=== PATIENT | female | born 1980 | race Caucasian/White ===

== ENCOUNTER → 2017-12-29 13:53 | Outpatient (CLI) | payer OTHER, SELFPAY ==
--- NOTE | 2017-12-29 14:04 | US_ITS ---
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 Combined endometrial thickness is upper normal at 1 cm. There is focal increased echogenicity in the superior aspect of the endometrium somewhat ill-defined with some mild posterior acoustical shadowing. This may be related to patient's Essure device as seen on previous CT scans. The tubal occlusion devices are not well demonstrated sonographically.. The right ovary measures 3 x 2.4 cm. The left ovary measures 3.5 x 2 cm. There are small bilateral ovarian follicles. No dominant adnexal mass. No cul-de-sac fluid. Bilateral ovarian blood flow is present. IMPRESSION: No acute finding. Increased echogenicity within the endometrium probably related to tubal occlusion device Endometrial thickness within normal limits
== END ==
PROVIDERS: Family Provider Pediatrics; PCP Nurse Practitioner Obstetrics & Gynecology; Visit Provider Nurse Practitioner Obstetrics & Gynecology
DX: N92.0 Excessive and frequent menstruation with regular cycle (principal)
CPT/HCPCS: 76830

== ENCOUNTER → 2018-01-17 15:07 | Outpatient (CLI) | payer OTHER, SELFPAY ==
[2018-01-17 15:28] LABS: Basophils # 0.1 K/mm3 (0-0.2); Basophils % 0.7 % (0.1-2.0); Eosinophils # 0.1 K/mm3 (0.0-0.4); Eosinophils % 1.3 % (0.1-12.0); Hematocrit 41.4 % (37.0-47.0); Hemoglobin 13.3 g/dL (12.2-16.2); Lymphocytes # 1.7 K/mm3 (0.7-4.5); Lymphocytes % 14.5 K/mm3 (10-50); Mean Corpuscular HGB Conc 32.2 g/dL (31.8-35.4); Mean Corpuscular Hemoglobin 27.6 pg (27.0-31.2); Mean Corpuscular Volume 85.5 fl (81-99); Mean Platelet Volume 8.3 fl (7.4-10.4); Monocytes # 0.5 K/mm3 (0.1-1.0); Monocytes % 4.4 % (1.7-9.3); Neutrophils # 9.1 K/mm3 (1.8-7.8); Neutrophils % 79.2 % (37.0-80.0); Platelet Count 347 K/mm3 (142-424); Red Blood Count 4.84 M/mm3 (4.20-5.40); Red Cell Distribution Width 13.2 % (11.5-17.5); White Blood Count 11.4 K/mm3 (4.8-10.8)
[2018-01-17 16:11] LABS: HCG Qualitative, Serum Negative (Negative)
[2018-01-17 16:33] LABS: Alanine Aminotransferase 13 U/L (12-78); Albumin Level 3.5 gm/dL (3.4-5.0); Albumin/Globulin Ratio 0.9 (1.1-1.8); Alkaline Phosphatase 118 U/L (46-116); Anion Gap 12.2 mEq/L (5-15); Aspartate Amino Transferase 10 U/L (15-37); Bilirubin,Total 0.2 mg/dL (0.2-1.0); Blood Urea Nitrogen 6 mg/dL (7-18); Calcium 8.8 mg/dL (8.5-10.1); Carbon Dioxide 30 mmol/L (21.0-32.0); Chloride 106 mmol/L (98-107); Creatinine,Serum 0.74 mg/dL (0.55-1.02); Estimated Glomerular Filt Rate 88 ml/min (>60); Free Thyroxine Index 2.9 ug/dL (5.93-13.13); GFR (African American) 106 ML/MIN (>60); Globulin 3.8 gm/dl (1.3-3.2); Glucose 103 mg/dL (74-106); Potassium 4.2 mmoL/L (3.5-5.1); Sodium 144 mmol/L (136-145); T4 (Thyroxine) 8.9 ug/dl (4.7-13.3); Total Protein,Serum 7.3 gm/dL (6.4-8.2); Triiodothryronine (T3) Uptake 33 % (31-39)
[2018-01-20 07:03] LABS: Neisseria gonorrhoeae, NAA Negative (Negative)
== END ==
PROVIDERS: Family Provider Pediatrics; PCP Nurse Practitioner Obstetrics & Gynecology; Visit Provider Nurse Practitioner Obstetrics & Gynecology
DX: N93.9 Abnormal uterine and vaginal bleeding, unspecified (principal); N89.8 Other specified noninflammatory disorders of vagina
CPT/HCPCS: 36415; 80053; 84436; 84443; 84479; 84703; 85014; 85018; 85025; 87491; 87591

== ENCOUNTER → 2018-01-31 10:26 | Outpatient (CLI) | payer OTHER, SELFPAY ==
[2018-01-31 10:50] LABS: Basophils # 0.1 K/mm3 (0-0.2); Basophils % 0.6 % (0.1-2.0); Eosinophils # 0.1 K/mm3 (0.0-0.4); Eosinophils % 1.2 % (0.1-12.0); Hematocrit 42.4 % (37.0-47.0); Hemoglobin 13.5 g/dL (12.2-16.2); Lymphocytes # 1.4 K/mm3 (0.7-4.5); Lymphocytes % 16.4 K/mm3 (10-50); Mean Corpuscular HGB Conc 31.7 g/dL (31.8-35.4); Mean Corpuscular Hemoglobin 27.7 pg (27.0-31.2); Mean Corpuscular Volume 87.3 fl (81-99); Mean Platelet Volume 8.1 fl (7.4-10.4); Monocytes # 0.4 K/mm3 (0.1-1.0); Monocytes % 4.7 % (1.7-9.3); Neutrophils # 6.6 K/mm3 (1.8-7.8); Platelet Count 335 K/mm3 (142-424); Red Blood Count 4.86 M/mm3 (4.20-5.40); White Blood Count 8.5 K/mm3 (4.8-10.8)
[2018-01-31 11:57] LABS: HCG Qualitative, Serum Negative (Negative)
[2018-01-31 13:17] LABS: Anion Gap 12.4 mEq/L (5-15); Blood Urea Nitrogen 8 mg/dL (7-18); Calcium 8.8 mg/dL (8.5-10.1); Carbon Dioxide 30 mmol/L (21.0-32.0); Chloride 106 mmol/L (98-107); Creatinine,Serum 0.64 mg/dL (0.55-1.02); Estimated Glomerular Filt Rate 104 ml/min (>60); GFR (African American) 126 ML/MIN (>60); Glucose 101 mg/dL (74-106); Potassium 4.4 mmoL/L (3.5-5.1); Sodium 144 mmol/L (136-145)
== END ==
PROVIDERS: PCP Pediatrics; Visit Provider Nurse Practitioner Obstetrics & Gynecology
DX: Z01.818 Encounter for other preprocedural examination (principal); N92.0 Excessive and frequent menstruation with regular cycle
CPT/HCPCS: 36415; 80048; 84703; 85025

== ENCOUNTER → 2018-09-22 07:00 | Outpatient (CLI) | payer OTHER, SELFPAY ==
[2018-09-22 07:03] LABS: Microscopic, Urine URINE MICROSCOPIC (MICROSCOPIC)
[2018-09-22 07:21] LABS: Appearance,Urine SL CLOUDY (Clear); Bilirubin,Urine Negative (Negative); Blood, Urine Negative (Negative); Color,Urine YELLOW (Yellow); Glucose,Urine (UA) Negative (Negative); Ketones,Urine Negative (Negative); Leukocyte Esterase,Urine Negative (Negative); Nitrate,Urine Negative (Negative); PH,Urine 6.5 (5.0-8.5); Protein,Urine Negative (Negative); Specific Gravity, Urine 1.015 (1.005-1.030); Urobilinogen,Urine 0.2 EU/dl (0.2)
[2018-09-22 07:41] LABS: Basophils # 0.1 K/mm3 (0-0.2); Basophils % 0.8 % (0.1-2.0); Eosinophils # 0.2 K/mm3 (0.0-0.4); Eosinophils % 1.6 % (0.1-12.0); Hematocrit 42.9 % (37.0-47.0); Hemoglobin 13.8 g/dL (12.2-16.2); Lymphocytes # 1.8 K/mm3 (0.7-4.5); Lymphocytes % 18.4 % (10-50); Mean Corpuscular HGB Conc 32.1 g/dL (31.8-35.4); Mean Corpuscular Hemoglobin 27.9 pg (27.0-31.2); Mean Corpuscular Volume 86.7 fl (81-99); Mean Platelet Volume 7.9 fl (7.4-10.4); Monocytes # 0.4 K/mm3 (0.1-1.0); Monocytes % 4.3 % (1.7-9.3); Neutrophils # 7.2 K/mm3 (1.8-7.8); Neutrophils % 74.9 % (37.0-80.0); Platelet Count 339 K/mm3 (142-424); Red Blood Count 4.95 M/mm3 (4.20-5.40); Red Cell Distribution Width 12.9 % (11.5-17.5); White Blood Count 9.6 K/mm3 (4.8-10.8)
[2018-09-22 08:04] LABS: Bacteria,Urine Trace /lpf; Hyaline Casts,Urine Occasional #/lpf (0)
[2018-09-22 08:51] LABS: Alanine Aminotransferase 15 U/L (12-78); Albumin Level 3.7 gm/dL (3.4-5.0); Albumin/Globulin Ratio 0.9 (1.1-1.8); Alkaline Phosphatase 109 U/L (46-116); Anion Gap 12.3 mEq/L (5-15); Aspartate Amino Transferase 10 U/L (15-37); Bilirubin,Total 0.6 mg/dL (0.2-1.0); Blood Urea Nitrogen 11 mg/dL (7-18); Calcium 9.1 mg/dL (8.5-10.1); Carbon Dioxide 29 mmol/L (21.0-32.0); Chloride 106 mmol/L (98-107); Chol/HDL Ratio 3.5 (1-3.5); Cholesterol 188 mg/dL (140-200); Creatinine,Serum 0.66 mg/dL (0.55-1.02); Estimated Glomerular Filt Rate 100 ml/min (>60); GFR (African American) 121 ML/MIN (>60); Glucose 98 mg/dL (74-106); HDL Cholesterol 53 mg/dL (29-89); LDL Cholesterol 121 mg/dL (0-130); Potassium 4.3 mmoL/L (3.5-5.1); Sodium 143 mmol/L (136-145); Thyroid Stimulating Hormone 2.49 uIU/ml (0.358-3.740); Total Protein,Serum 7.7 gm/dL (6.4-8.2); Triglycerides 68 mg/dL (30-200); VLDL Cholesterol 14 mg/dL (0-40)
== END ==
PROVIDERS: Visit Provider Pediatrics
DX: I10 Essential (primary) hypertension (principal); R53.83 Other fatigue; R35.1 Nocturia
CPT/HCPCS: 36415; 80053; 80061; 81001; 84443; 85025

== ENCOUNTER → 2018-10-24 10:57 | Outpatient (CLI) | payer OTHER, SELFPAY ==
[2018-10-26 07:46] LABS: Hepatitis B Surface Antigen Negative (Negative); Hepatitis C Antibody 0.1 s/co ratio (0.0-0.9); Rapid Plasma Reagin Ab Titer Non Reactive (NonRea<1:1)
[2018-10-26 07:47] LABS: HIV Screen 4th Generation wRfx Non Reactive (Non Reactive); HSV 2 IgG Supplemental Testing Positive (Negative); HSV 2 IgG, Type Spec 1.18 index (0.00-0.90)
== END ==
PROVIDERS: Visit Provider Nurse Practitioner Obstetrics & Gynecology
DX: Z72.51 High risk heterosexual behavior (principal)
CPT/HCPCS: 36415; 86592; 86695; 86703; 86790; 87340; 87380; G0432

== ENCOUNTER → 2019-12-13 07:31 | Outpatient (CLI) | payer OTHER, SELFPAY ==
[2019-12-13 08:27] LABS: Alanine Aminotransferase 8 U/L (12-78); Albumin Level 3.9 g/dl (3.5-5.0); Albumin/Globulin Ratio 1.3 (1.1-1.8); Alkaline Phosphatase 114 U/L (38-126); Anion Gap 13.1 mEq/L (5-15); Aspartate Amino Transferase 21 U/L (14-36); Bilirubin,Total 0.3 mg/dl (0.2-1.3); Blood Urea Nitrogen 17 mg/dl (7-17); Calcium 9.5 mg/dl (8.4-10.2); Carbon Dioxide 30 mmol/L (22.0-30.0); Chloride 101 mmol/L (98-107); Chol/HDL Ratio 3.4 (1-3.5); Cholesterol 175 mg/dl (140-200); Estimated Glomerular Filt Rate 111 ml/min (>60); GFR (African American) 134 ML/MIN (>60); Globulin 3.1 g/dL (1.3-3.2); Glucose 103 mg/dl (74-100); HDL Cholesterol 52 mg/dl (40-60); Potassium 5.1 mmoL/L (3.5-5.1); Sodium 139 mmol/L (136-145); Triglycerides 77 mg/dl (30-150); VLDL Cholesterol 15 mg/dL (0-40)
[2019-12-13 08:32] LABS: Basophils # 0.1 K/mm3 (0-0.2); Basophils % 0.7 % (0.1-2.0); Eosinophils # 0.3 K/mm3 (0.0-0.4); Eosinophils % 2.3 % (0.1-12.0); Hematocrit 41.1 % (37.0-47.0); Hemoglobin 13.7 g/dL (12.2-16.2); Lymphocytes # 2.3 K/mm3 (0.7-4.5); Lymphocytes % 18.1 % (10-50); Mean Corpuscular HGB Conc 33.3 g/dL (31.8-35.4); Mean Corpuscular Hemoglobin 28.8 pg (27.0-31.2); Mean Corpuscular Volume 86.4 fl (81-99); Mean Platelet Volume 8.1 fl (7.4-10.4); Monocytes # 0.7 K/mm3 (0.1-1.0); Monocytes % 5.7 % (1.7-9.3); Neutrophils # 9.1 K/mm3 (1.8-7.8); Neutrophils % 73.2 % (37.0-80.0); Platelet Count 351 K/mm3 (142-424); Red Blood Count 4.76 M/mm3 (4.20-5.40); Red Cell Distribution Width 13.1 % (11.5-17.5); White Blood Count 12.5 K/mm3 (4.8-10.8)
[2019-12-13 08:38] LABS: Direct LDL Cholesterol 103.78 mg/dL (100-129)
[2019-12-14 11:17] LABS: LH 7.4 mIU/mL (.)
== END ==
PROVIDERS: Visit Provider Nurse Practitioner Obstetrics & Gynecology
DX: Z01.419 Encounter for gynecological examination (general) (routine) without abnormal findings (principal)
CPT/HCPCS: 36415; 80053; 80061; 83001; 83002; 85025

== ENCOUNTER → 2020-01-09 09:47 | Outpatient (CLI) | payer OTHER, SELFPAY ==
--- NOTE | 2020-01-09 09:48 | MM_ITS ---
PROCEDURE: MM DIG SCREENING MAMM BI W/CAD Referring Doctor: Jhonatan Juarez Patient Age:39Y CLINICAL INDICATION: Baseline screening. No hormones no new complaints. Screening xmg Noncontributory family history COMPARISON: No exams were available for comparisonBaseline mammogram TECHNIQUE: Standard CC and MLO images were obtained. R2 CAD reviewed. Bilateral digital breast tomosynthesis included. FINDINGS: Baseline mammogram moderate density breast bilaterally. Fibroglandular elements most evident extending towards upper-outer quadrant. No suspicious calcifications. No suspicious mass. Small most likely benign nodular densities left breast Left breast: 7 mm round smooth margin nodular density upper-outer quadrant benign appearance but warrants ultrasound to further evaluate. Suspect small cyst or possible intramammary node. Just superior and lateral to this is a tiny 3 mm most likely benign nodular density of with smooth margin with similar considerations are Right breast. No new areas of concern. Continue with annual schedule right breast IMPRESSION: Baseline mammogram Left breast: Well-marginated benign-appearing 7 mm and 3 mm nodular densities upper outer quadrant left breast. Ultrasound suggested to further evaluate Right breast unremarkable. Follow-up 1 year on right BI-RAD Category: 0 Need Additional Imaging Evaluation the FOLLOW-UP: IMM Immediate Follow-up Recommended Ultrasound left breast (A letter has been sent to the patient regarding results of the study.) Dictated by: Ji Castillo MD 01/11/2020 11:52 Ji Castillo MD in [facility] 01/11/2020 11:52
== END ==
PROVIDERS: PCP Pediatrics; Visit Provider Nurse Practitioner Obstetrics & Gynecology
DX: Z12.31 Encounter for screening mammogram for malignant neoplasm of breast (principal)
CPT/HCPCS: 77063; 77067

== ENCOUNTER → 2020-01-24 13:03 | Outpatient (CLI) | payer OTHER, SELFPAY ==
--- NOTE | 2020-01-24 13:03 | US_ITS ---
PROCEDURE: US BREAST LT COMPLETE CLINICAL INDICATION: abnormal xmg COMPARISON: MG MM DIG SCREENING MAMM BI W/CAD from 01/09/2020 FINDINGS: At 2 o'clock there is a 6 by 5 mm complex nodule hypoechoic peripherally with a hyperechoic center and may be due to a lymph node. In addition there is a 4 mm mostly hyperechoic nodule at 2 o'clock with a peripheral area of slight decreased echogenicity. These are consistent with small lymph nodes. There is a 1.9 cm axillary node nonspecific. IMPRESSION: Probably benign findings. Mammographic abnormalities are likely related to intramammary lymph nodes. Recommend six-month sonographic and mammographic follow-up to confirm stability and to confirm baseline Dictated by: Salvador Machado MD 02/04/2020 09:44 Salvador Machado MD in [facility] 02/04/2020 09:44
== END ==
PROVIDERS: PCP Pediatrics; Referring Provider Nurse Practitioner Obstetrics & Gynecology; Visit Provider Nurse Practitioner Obstetrics & Gynecology
DX: R92.8 Other abnormal and inconclusive findings on diagnostic imaging of breast (principal)
CPT/HCPCS: 76641

== ENCOUNTER → 2020-07-30 13:31 | Outpatient (CLI) | payer OTHER, SELFPAY ==
--- NOTE | 2020-07-30 13:32 | US_ITS ---
PROCEDURE: MM DIG MAMM DX UNILAT LT CAD Digital Breast Tomosynthesis Included CLINICAL INDICATION: Mammographic abnormalities-Intramammary Lymph node humerus COMPARISON: MG MM DIG SCREENING MAMM BI W/CAD from 01/09/2020 US US BREAST LT COMPLETE from 01/24/2020 US US BREAST LT COMPLETE from 07/30/2020 TECHNIQUE: Standard CC and MLO images and 3D Tomosynthesis was obtained. R2 CAD reviewed. Left breast ultrasound also performed FINDINGS: Average fibroglandular tissue. No change in the 6 mm well-circumscribed nodule within the outer aspect of the left breast. A 3 mm nodules also noted laterally unchanged. Both have a benign appearance Left breast ultrasound: At 2 o'clock there is a 6 mm hypoechoic nodule with central area of increased echogenicity consistent with a lymph nodes similar to the previous exam. Small cyst is present at 3 o'clock measuring 5 mm IMPRESSION: Benign findings. Recommend resume bilateral screening mammogram January 2021 BI-RAD Category: 2 Benign Finding(s) FOLLOW-UP: 6M 6Month Follow-up (A letter has been sent to the patient regarding results of the study.) Dictated by: Salvador Machado MD 08/01/2020 13:34 Salvador Machado MD in [facility] 08/01/2020 13:34
== END ==
PROVIDERS: PCP Pediatrics; Visit Provider Nurse Practitioner Obstetrics & Gynecology
DX: R92.8 Other abnormal and inconclusive findings on diagnostic imaging of breast (principal)
CPT/HCPCS: 76641; 77061; 77065; G0279

== ENCOUNTER → 2021-01-16 14:14 | Outpatient (CLI) | payer OTHER, SELFPAY ==
--- NOTE | 2021-01-16 14:15 | MM_ITS ---
PROCEDURE: MM DIG MAMM BI DX W/CAD Digital Breast Tomosynthesis Included CLINICAL INDICATION: 6 month f/u from abnormal mammogram COMPARISON: MG MM DIG SCREENING MAMM BI W/CAD from 01/09/2020 US US BREAST LT COMPLETE from 07/30/2020 MG MM DIG MAMM DX UNILAT LT CAD from 07/30/2020 TECHNIQUE: Standard CC and MLO images and 3D Tomosynthesis was obtained. R2 CAD reviewed. FINDINGS: There are scattered areas of fibroglandular density Benign-appearing nodule once again noted in the upper outer left breast at 6 mm. Overall not significantly changed. An additional benign-appearing nodules present in the outer left breast at 4 mm unchanged. No suspicious appearing mass, malignant-appearing microcalcification, architectural distortion, or skin thickening. IMPRESSION: Benign findings. BI-RAD Category: 2 Benign Finding FOLLOW-UP: 1 YR 1 Year Follow-up (A letter has been sent to the patient regarding results of the study.) Dictated by: Salvador Machado MD 01/29/2021 11:48 Salvador Machado MD in [facility] 01/29/2021 11:48
== END ==
PROVIDERS: PCP Pediatrics; Visit Provider Nurse Practitioner Obstetrics & Gynecology
DX: R92.8 Other abnormal and inconclusive findings on diagnostic imaging of breast (principal)
CPT/HCPCS: 77062; 77066; G0279

== ENCOUNTER → 2021-02-06 07:30 | Outpatient (CLI) | payer OTHER, SELFPAY ==
[2021-02-06 07:50] LABS: Basophils # 0.1 K/mm3 (0-0.2); Basophils % 0.9 % (0.1-2.0); Eosinophils # 0.3 K/mm3 (0.0-0.4); Eosinophils % 2.2 % (0.1-12.0); Hematocrit 41.9 % (37.0-47.0); Hemoglobin 13.5 g/dL (12.2-16.2); Mean Corpuscular HGB Conc 32.2 g/dL (31.8-35.4); Mean Corpuscular Hemoglobin 28.2 pg (27.0-31.2); Mean Corpuscular Volume 87.4 fl (81-99); Mean Platelet Volume 8.7 fl (7.4-10.4); Monocytes # 0.6 K/mm3 (0.1-1.0); Monocytes % 4.7 % (1.7-9.3); Neutrophils # 9.1 K/mm3 (1.8-7.8); Neutrophils % 75.3 % (37.0-80.0); Platelet Count 389 K/mm3 (142-424); Red Cell Distribution Width 13.3 % (11.5-17.5); White Blood Count 12.1 K/mm3 (4.8-10.8)
[2021-02-06 09:25] LABS: Free Thyroxine Index 2.5 ug/dL (5.93-13.13); Triiodothryronine (T3) Uptake 28 % (23.5-40.5)
[2021-02-06 09:39] LABS: Thyroid Stimulating Hormone 2.51 uIU/mL (0.465-4.68)
[2021-02-06 15:35] LABS: Chloride 104 mmol/L (98-107); Potassium 3.9 mmoL/L (3.5-5.1); Sodium 140 mmol/L (136-145)
[2021-02-06 15:38] LABS: Alanine Aminotransferase 8 U/L (12-78); Albumin Level 3.8 g/dl (3.5-5.0); Albumin/Globulin Ratio 1.1 (1.1-1.8); Alkaline Phosphatase 113 U/L (38-126); Anion Gap 10.9 mEq/L (5-15); Aspartate Amino Transferase 21 U/L (14-36); Bilirubin,Total 0.5 mg/dl (0.2-1.3); Blood Urea Nitrogen 9 mg/dl (7-17); Calcium 9.1 mg/dl (8.4-10.2); Carbon Dioxide 29 mmol/L (22.0-30.0); Cholesterol 198 mg/dl (140-200); Estimated Glomerular Filt Rate 136 ml/min (>60); GFR (African American) 165 ML/MIN (>60); Globulin 3.5 g/dL (1.3-3.2); Glucose 98 mg/dl (74-100); Total Protein,Serum 7.3 g/dl (6.3-8.2); Triglycerides 119 mg/dl (30-150); VLDL Cholesterol 24 mg/dL (0-40)
[2021-02-06 15:39] LABS: Chol/HDL Ratio 4.5 (1-3.5); HDL Cholesterol 44 mg/dl (40-60)
[2021-02-06 15:50] LABS: Direct LDL Cholesterol 121.71 mg/dL (100-129)
[2021-02-07 05:09] LABS: Hep A Ab, IgM Negative (Negative); Hepatitis B Core Antibody IgM Negative (Negative); Hepatitis B Surface Antigen Negative (Negative); Hepatitis C Antibody <0.1 s/co ratio (0.0-0.9)
[2021-02-07 09:58] LABS: HIV Screen 4th Generation wRfx Non Reactive (Non Reactive)
[2021-02-07 12:03] LABS: Rapid Plasma Reagin Ab Titer Non Reactive (NonRea<1:1)
== END ==
PROVIDERS: Visit Provider Nurse Practitioner Obstetrics & Gynecology
DX: Z72.51 High risk heterosexual behavior (principal); Z01.419 Encounter for gynecological examination (general) (routine) without abnormal findings; R53.83 Other fatigue
CPT/HCPCS: 36415; 80053; 80061; 80074; 84436; 84443; 84479; 85025; 86592; 86695; 86703; 86790; G0432

== ENCOUNTER → 2021-08-20 10:43 | Outpatient (CLI) | payer OTHER, SELFPAY ==
[2021-08-21 08:33] LABS: Hep A Ab, IgM Negative (Negative); Hepatitis B Core Antibody IgM Negative (Negative); Hepatitis B Surface Antigen Negative (Negative); Hepatitis C Antibody 0.2 s/co ratio (0.0-0.9)
[2021-08-21 09:18] LABS: HIV Screen 4th Generation wRfx Non Reactive (Non Reactive)
[2021-08-21 12:29] LABS: Rapid Plasma Reagin Ab Titer Non Reactive (NonRea<1:1)
[2021-08-21 15:23] LABS: HSV 2 IgG Supplemental Testing Positive (Negative)
== END ==
PROVIDERS: Visit Provider Obstetrics & Gynecology
DX: Z20.2 Contact with and (suspected) exposure to infections with a predominantly sexual mode of transmission (principal); Z11.4 Encounter for screening for human immunodeficiency virus [HIV]
CPT/HCPCS: 36415; 80074; 86592; 86695; 86703; 86790; G0432

== ENCOUNTER → 2022-01-19 07:51 | Outpatient (CLI) | payer OTHER, SELFPAY ==
--- NOTE | 2022-01-19 07:51 | MM_ITS ---
PROCEDURE INFORMATION: Exam: MG Bilateral Screening 3D Mammography Exam date and time: 01/19/2022 7:53 AM Age: 41 years old Clinical indication: Screening examination TECHNIQUE: Imaging protocol: Bilateral Screening tomosynthesis and 2D mammography including computer-aided detection (CAD) when performed. COMPARISON: 1. MG MM DIG MAMM BI DX W/CAD 01/16/2021 2:17 PM 2. MG MM DIG MAMM DX UNILAT LT CAD 07/30/2020 1:53 PM FINDINGS: MAMMOGRAPHY: Breast composition: There are scattered areas of fibroglandular density. Mass: None. Architectural distortion: None. Calcifications: No suspicious calcifications. Asymmetric density: None. Skin thickening: None. Axillary adenopathy: None. IMPRESSION: No mammographic evidence of malignancy. Annual screening is recommended unless otherwise clinically indicated. ASSESSMENT: BI-RADS Category 1: Negative
== END ==
PROVIDERS: PCP Pediatrics; Visit Provider Nurse Practitioner Obstetrics & Gynecology
DX: Z12.31 Encounter for screening mammogram for malignant neoplasm of breast (principal)
CPT/HCPCS: 77063; 77067

== ENCOUNTER → 2023-04-11 08:10 | Outpatient (CLI) | payer OTHER, SELFPAY ==
--- NOTE | 2023-04-11 08:11 | MM_ITS ---
PROCEDURE INFORMATION: Exam: MG Bilateral Screening 3D Mammography Exam date and time: 04/11/2023 8:11 AM Age: 43 years old Clinical indication: Screening mammogram TECHNIQUE: Imaging protocol: Bilateral Screening tomosynthesis and 2D mammography including computer-aided detection (CAD) when performed. COMPARISON: 1. MG MM DIG SCREENING MAMM BI W/CAD 01/19/2022 7:53 AM 2. MG MM DIG MAMM BI DX W/CAD 01/16/2021 2:17 PM 3. MG MM DIG MAMM DX UNILAT LT CAD 07/30/2020 1:53 PM FINDINGS: MAMMOGRAPHY: Breast composition: There are scattered areas of fibroglandular density. Mass: Stable benign-appearing subcentimeter nodules are present in the left breast. No new or morphologically suspicious nodule has developed to suggest malignancy. Architectural distortion: No new or suspicious architectural distortion. Calcifications: No new or suspicious calcifications are present Asymmetric density: No new or suspicious asymmetric density is present Skin thickening: None. Axillary adenopathy: None. IMPRESSION: No mammographic evidence of malignancy. Recommend annual screening mammography unless otherwise clinically indicated. ASSESSMENT: BI-RADS category 2: Benign
== END ==
PROVIDERS: PCP Pediatrics; Visit Provider Nurse Practitioner Obstetrics & Gynecology
DX: Z12.31 Encounter for screening mammogram for malignant neoplasm of breast (principal)
CPT/HCPCS: 77063; 77067

== ENCOUNTER 2025-02-12 14:41 | Outpatient (CLI) | payer OTHER, SELFPAY ==
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
--- OUTSIDE RECORDS SUMMARY | 2025-02-04 11:45 | XMS_ITS | Encounter Summary ---
[facility] [address] [place] [address] Care Team Providers Care Roving Sizer Name Role Phone Kike Aguirre MD Primary Care Provider [phone] Reason for Visit * Reason Comments Med Refill Encounter Details Date Type Department Care Team (Late st Contact Info) Description 02/04/2025 11:45 AM EDT Office Visit [facility] [address] [place] [address] [place] [phone] Kike Aguirre MD [address] [place] [address] [place] [address] Bilateral plantar fasciitis (Primary Dx); Class 3 severe obesity due to excess calories without serious comorbidity with body mass index (BMI) of 45.0 to 49.9 in adult; Prediabetes; Gastroesophageal reflux disease without esophagitis Social History Tobacco Use Types Packs/Day Years Used Date Smoking Tobacco: Former Cigarettes 0.5 39.8 S tarted: 1985 Passive Smoke Exposure: Never Smokeless Tobacco: Never Tobacco Cessation:Counseling Given: No Alcohol Use Standard Drinks/Week Comments Never 0 [...] Sign Reading Time Taken Comments Blood Pressure 124/80 02/04/2025 11:47 AM EDT Pulse - - Temperature 37.1 C (98.7 F) 02/04/2025 11:47 AM EDT Respiratory Rate - - Oxygen Saturation - - Inhaled Oxygen Concentration - - Weight 117 kg (257 lb) 02/04/2025 11:47 AM EDT Height 157.5 cm (5' 2 ) 02/04/2025 11:47 AM EDT Body Mass Index 47.01 02/04/2025 11:47 AM EDT documented in this encounter Progress Notes * Kike Aguirre MD - 02/04/2025 1:06 PM EDTAssociated Problem(s): Gastroesophageal reflux disease without esophagitis Intermittent pattern of GERD symptoms on and off, for which he has been using Pepcid daily with benefit. No sticking sensation in throat. I recommend transition to as needed use to avoid constant antacid use. Continue reflux precautions. With increased ibuprofen use related to recent foot surgery re commend using the Pepcid regular for next couple weeks, then as needed. Advise any worsening * Kike Aguirre MD - 02/04/2025 1:06 PM EDTAssociated Problem(s): Bilateral plantar fasciitis Left greater than right sided historically with notable flare at the visit today 09/25/2024. Evaluated initially 2013, with some associated muscular aches related to the pattern. Ongoing triggers including frequent generally poor footwear without good arch support, working on hard surfaces, etc. I recommended benefits of getting new shoes with better arch support or considering inserts, other preventative measures including stretches and icing by rolling a frozen water bottle on the ground of regularity to help symptomatically. Nonetheless as of 09/25/2024 notable persisting or worsening pattern, as such he was referred to Dr. Murray, podiatry specialist where she was seen 10/18/2024 with recommendation for MRI and ultimately has been recommended for bilateral plantar fasciitis surgery, whichwas completed on 01/24/2025 and she is overall doing well with follow-up later this week. 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 Nonetheless she preferred to resume phentermine alone on 01/03/2025, again preferring to do the phentermine alone and if did not respond we couldconsider combining the phentermine with Topamax. Modest weight loss of 5 pounds with first month ofphentermine which she feels that is helping this is also been limited by her lack of mobility having had her left foot endoscopic plantar fasciotomy procedure. As such we will continue phentermine with second month today on 02/04/2025, phentermine 37.5 mg and half tablet with breakfast and 1/2 tablet with lunch, number 30 tablets. Would use typically at minimum 3 and up to 4 months of therapy if seeing benefit. She has tolerated well in the past. Reinforced importance healthy diet, exercise and weight loss. Reassess in 1 month follow-up visit, sooner as needed * Kike Aguirre MD - 02/04/2025 11:45 AM EDT Images from the original note were not included. Follow Up Office Visit Date: 02/04/2025 Patient Name: Ai Stevenson : 1980 Chief Complaint: Chief Complaint Patient presents with Med Refill History of Present Illness: Ai Stevenson is a 44 y.o. female who is here today to follow up with multiple medical problems.. History of Present Illness The patient is a 44-year-old female who presents for a follow-up visit. She reports an increase in energy levels and a decrease in appetite, which she attributes to the use of phentermine. She has lost approximately 5 pounds and is gradually increasing her physical activity. She experiences occasional heartburn, which she believes is influenced by her diet. She had a surgery 10 or 11 days ago andis scheduled for a 2-week follow-up on at 10:20. She was prescribed ibuprofen 800 mg, which has been effective in managing her pain. Otherwise reflux symptoms are overall doing fairly well but we caution with some increased Advil use related to her recent foot surgical repair, she could have flare and recommend resuming her famotidine for the next couple weeks. Subjective Review of Systems: Review of Systems I have reviewed the patients family history, social history, past medical history, past surgical history and have updated it as appropriate. Medications: Current Outpatient Medications: albuterol sulfate HFA 108 (90 Base) MCG/ACT inhaler, Inhale 2 puffs Every 4 (Four) Hours As Needed for Wheezing or Shortness of Air., Disp: 18 g, Rfl: 2 cetirizine (zyrTEC) 10 MG tablet, TAKE 1 TABLET BY MOUTH DAILY, Disp: 30 tablet, Rfl: 3 famotidine (PEPCID) 20 MG tablet, Take 1 tablet by mouth Daily As Needed for Heartburn., Disp: 90 tablet, Rfl: 1 fluticasone (FLONASE) 50 MCG/ACT nasal spray, SHAKE LIQUID AND USE 2 SPRAYS IN EACH NOSTRIL DAILY, Disp: 48 g, Rfl: 2 HYDROcodone-acetaminophen (NORCO) 5-325 MG per tablet, Take by mouth See Admin Instructions. Take 1tablet by mouth every 4-6 hours as needed for pain, Disp: , Rfl: losartan-hydrochlorothiazide (HYZAAR) 100-25 MG per tablet, Take 1 tablet by mouth Daily., Disp: 90tablet, Rfl: 1 montelukast (SINGULAIR) 10 MG tablet, Take 1 tablet by mouth Every Night., Disp: 30 tablet, Rfl: 3 phentermine (Adipex-P) 37.5 MG tablet, Take 0.5 tablets by mouth 2 (Two) Times a Day., Disp: 30 tablet, Rfl: 0 pramipexole (MIRAPEX) 0.5 MG tablet, TAKE 1 TABLET BY MOUTH EVERY NIGHT, Disp: 30 tablet, Rfl: 2 triamcinolone (KENALOG) 0.1 % cream, Apply 1 Application topically to the appropriate area as directed 2 (Two) Times a Day., Disp: 28.4 g, Rfl: 1 Allergies: No Known Allergies Objective Physical Exam: Please see above Vital Signs: Vitals: 02/04/25 1147 BP: 124/80 BP Location: Right arm Patient Position: Sitting Cuff Size: Adult Temp: 98.7 ??F (37.1 ??C) TempSrc: Temporal Weight: 117 kg (257 lb) Height: 157.5 cm (62 ) Facility age limit for growth %aliya is 20 years. Body mass index is 47.01 kg/m??. Physical Exam Constitutional: General: She is not in acute distress. Appearance: Normal appearance. She is not ill-appearing, toxic-appearing or diaphoretic. HENT: Right Ear: Tympanic membrane, ear canal and external ear normal. Left Ear: Tympanic membrane, ear canal and external ear normal. Nose: Nose normal. No rhinorrhea. Mouth/Throat: Mouth: Mucous membranes are moist. Pharynx: Oropharynx is clear. No oropharyngeal exudate or posterior oropharyngeal erythema. Cardiovascular: Rate and Rhythm: Normal rate and regular rhythm. Pulses: Normal pulses. Heart sounds: Normal heart sounds. No murmur heard. No friction rub. No gallop. Pulmonary: Effort: Pulmonary effort is normal. No respiratory distress. Breath sounds: Normal breath sounds. No stridor. No wheezing. Musculoskeletal: Right lower leg: No edema. Left lower leg: No edema. Comments: Patient is wearing a left foot boot Skin: General: Skin is warm and dry. Capillary Refill: Capillary refill takes less than 2 seconds. Neurological: General: No focal deficit present. Mental Status: She is alert and oriented to person, place, and time. Mental status is at baseline. Psychiatric: Mood and Affect: Mood normal. Behavior: Behavior normal. Thought Content: Thought content normal. Procedures Results: Labs: Hemoglobin A1C Date Value Ref Range Status 12/12/2024 5.9 (H) 4.8 - 5.6 % Final Comment: Prediabetes: 5.7 - 6.4 Diabetes: >6.4 Glycemic control for adults with diabetes: <7.0 09/25/2024 5.9 (A) 4.5 - 5.7 % Final TSH Date Value Ref Range Status 09/25/2024 2.720 0.450 - 4.500 uIU/mL Final Imaging: No valid procedures specified. Vaccine Counseling: Assessment / Plan Assessment/Plan: Diagnoses and all orders for this visit: 1. Bilateral plantar fasciitis (Primary) Assessment & Plan: Left greater than right sided historically with notable flare at the visit today 09/25/2024. Evaluated initially 2013, with some associated muscular aches related to the pattern. Ongoing triggers including frequent generally poor footwear without good arch support, working on hard surfaces, etc. I recommended benefits of getting new shoes with better arch support or considering inserts, other preventative measures including stretches and icing by rolling a frozen water bottle on the ground of regularity to help symptomatically. Nonetheless as of 09/25/2024 notable persisting or worsening pattern, as such he was referred to Dr. Murray, podiatry specialist where she was seen 10/18/2024 with recommendation for MRI and ultimately has been recommended for bilateral plantar fasciitis surgery, whichwas completed on 01/24/2025 and she is overall doing well with follow-up later this week. 2. 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 Nonetheless she preferred to resume phentermine alone on 01/03/2025, again preferring to do the phentermine alone and if did not respond we couldconsider combining the phentermine with Topamax. Modest weight loss of 5 pounds with first month ofphentermine which she feels that is helping this is also been limited by her lack of mobility having had her left foot endoscopic plantar fasciotomy procedure. As such we will continue phentermine with second month today on 02/04/2025, phentermine 37.5 mg and half tablet with breakfast and 1/2 tablet with lunch, number 30 tablets. Would use typically at minimum 3 and up to 4 months of therapy if seeing benefit. She has tolerated well in the past. Reinforced importance healthy diet, exercise and weight loss. Reassess in 1 month follow-up visit, sooner as needed Orders: - phentermine (Adipex-P) 37.5 MG tablet; Take 0.5 tablets by mouth 2 (Two) Times a Day. Dispense: 30 tablet; Refill: 0 3. Prediabetes 4. Gastroesophageal reflux disease without esophagitis Assessment & Plan: Intermittent pattern of GERD symptoms on and off, for which he has been using Pepcid daily with benefit. No sticking sensation in throat. I recommend transition to as needed use to avoid constant antacid use. Continue reflux precautions. With increased ibuprofen use related to recent foot surgery re commend using the Pepcid regular for next couple weeks, then as needed. Advise any worsening Assessment & Plan 1. Weight management/morbid obesity: She has experienced a weight loss of approximately 5 pounds since her last visit. The patient feelsmore energetic and reports that phentermine is helping with appetite suppression. Despite recent surgery and limited mobility, she has managed to lose weight, which is encouraging. A refill of phentermine will be provided. The plan is to continue this medication for at least 3 months, with the possibility of extending it to 4 months if she continues to respond well. 2. GERD: Her heartburn symptoms appear to be influenced by her dietary choices. She is advised to use Pepcidmore regularly over the next few weeks. If her condition improves, she may consider reducing her Advil intake. 3. Post-surgical pain: She reports that ibuprofen 800 mg has been effective in managing her post- surgical pain. She is advised to continue using ibuprofen as needed but to be cautious of potential heartburn. 4. Prediabetes: It is too early to recheck her prediabetes status, but her last results were within normal limits. 5. Health maintenance: She has received her influenza vaccine. She is due for a Pap smear and is reminded to schedule thisscreening. Follow-up: A follow-up visit is scheduled in 1 month. Follow Up: Return in about 1 month (around 03/06/2025) for Next scheduled follow up. Patient or patient front office representative verbalized consent for the use of Ambient Listening during the visit with Kike Aguirre MD for chart documentation. 02/04/2025 13:06 EDT Kike Aguirre MD [facility] documented in this encounter Plan of Treatment Upcoming Encounters Date Type Department Care Team (Late st Contact Info) Description 03/05/2025 9:30 AM EDT Office Visit [facility] [address] [place] [id number] Kike Aguirre MD [address] [place] [address] 03/28/2025 8:30 AM EST Office Visit [place] [id number] [place] [place] [id number] Kike Aguirre MD [address] [place] [address] documented as of this encounter Visit Diagnoses Diagnosis Bilateral plantar fasciitis- Primary Class 3 severe obesity due to excess calories without serious comorbidity with body mass index (BMI) of 45.0 to 49.9 in adult Prediabetes Other abnormal glucose Gastroesophageal reflux disease without esophagitis Esophageal reflux documented in this encounter Care Teams Roving Sizer Relationship Specialty Start Date End Date Kike Aguirre MD [address] [place] [address] PCP - General Internal Medicine 12/24/21 documented as of this encounter
--- OUTSIDE RECORDS SUMMARY | 2025-02-12 14:48 | XMS_ITS | Clinical Summary ---
Author Organization [facility] ystem Address [address] [place] [address] Care Team Providers Care Flow Specialist Name Role Phone Kike Aguirre MD Primary Care Provider [phone] Allergies No known active allergies Medications triamcinolone (KENALOG) 0.1 % creamIndication s:Allergic contact dermatitis due to other agents Apply 1 Application topically to the appropriate area as directed 2 (Two) Times a Day. 28.4 g 1 03/05/20 24 Active cetirizine (zyrTEC) 10 MG tabletIndicatio ns:Allergic contact dermatitis due to other agents TAKE 1 TABLET BY MOUTH DAILY 30 tablet 3 03/13/20 24 Active fluticasone (FLONASE) 50 MCG/ACT nasal sprayIndication s:Seasonal allergic rhinitis due to pollen SHAKE LIQUID AND USE 2 SPRAYS IN EACH NOSTRIL DAILY 48 g 2 03/19/20 24 Active montelukast (SINGULAIR) 10 MG tabletIndicatio ns:Seasonal allergic rhinitis due to pollen Take 1 tablet by mouth Every Night. 30 tablet 3 05/21/19 25 Active albuterol sulfate HFA 108 (90 Base) MCG/ACT inhalerIndicati ons:Mild intermittent intrinsic asthma without status asthmaticus without complication Inhale 2 puffs Every 4 (Four) Hours As Needed for Wheezing or Shortness of Air. 18 g 2 05/21/19 25 Active famotidine (PEPCID) 20 MG tabletIndicatio ns:Gastroesopha geal reflux disease without esophagitis Take 1 tablet by mouth Daily As Needed for Heartburn. 90 tablet 1 01/04/20 25 Active losartan-hydroc hlorothiazide (HYZAAR) 100-25 MG per tabletIndicatio ns:Essential (primary) hypertension Take 1 tablet by mouth Daily. 90 tablet 1 01/04/20 25 Active pramipexole (MIRAPEX) 0.5 MG tabletIndicatio ns:Restless legs syndrome TAKE 1 TABLET BY MOUTH EVERY NIGHT 30 tablet 2 01/18/20 25 Active HYDROcodone-swapna taminophen (NORCO) 5-325 MG per tablet Take by mouth See Admin Instructions. Take 1 tablet by mouth every 4-6 hours as needed for pain 01/26/20 25 Active phentermine (Adipex-P) 37.5 MG tabletIndicatio ns:Class 3 severe obesity due to excess calories without serious comorbidity with body mass index (BMI) of 45.0 to 49.9 in adult Take 0.5 tablets by mouth 2 (Two) Times a Day. 30 tablet 02/05/20 25 Active pramipexole (MIRAPEX) 0.5 MG tabletIndicatio ns:Restless legs syndrome TAKE 1 TABLET BY MOUTH EVERY NIGHT 30 tablet 2 09/26/19 25 2024 Discontinued phentermine (Adipex-P) 37.5 MG tabletIndicatio ns:Class 3 severe obesity due to excess calories without serious comorbidity with body mass index (BMI) of 45.0 to 49.9 in adult Take 0.5 tablets by mouth 2 (Two) Times a Day. 30 tablet 01/04/20 25 2024 Discontinued(R clare) Active Problems Problem Noted Date Diagnosed Date Gastroesophageal reflux disease without esophagi tis 01/03/2025 Assessment & Plan (02/04/2025 1:06 PM EDT): Intermittent pattern of GERD symptoms on and off, for which he has been using Pepcid daily with benefit. No sticking sensation in throat. I recommend transition to as needed use to avoid constant antacid use. Continue reflux precautions. With increased ibuprofen use related to recent foot surgery recommend using the Pepcid regular for next couple weeks, then as needed. Advise any worsening Assessment & Plan (01/03/2025 11:59 AM EDT): This pattern of GERD symptoms on and off, for which he has been using Pepcid daily with benefit. No sticking sensation in throat. I recommend transition to as needed use to avoid constant antacid use. Continue reflux precautions. Reassess how she is doing at follow-up visit. Preop cardiovascular exam 12/12/2024 Assessment & Plan (12/12/2024 10:07 AM EDT): Here for preoperative evaluation on 12/12/2024 with planned bilateral plantar fasciitis surgery by Dr. Murray. Evaluated 10/18/2024 with follow-up planned MRI, ultimately felt to be a candidate for surgery, with progressing symptoms for many years. From a cardiovascular perspective, EKG is normal today 12/12/2024 and unchanged compared to previous and her Quinones activity status evaluation is completely normal with a maximal score of 9.89 metabolic equivalents. Furthermore she does have mild intermittent asthma but very well-controlled without inhaler use for many months. As such an awareness of her asthmatic tendency is appropriate but should not prevent any difficulties for surgery. From a medical perspective she does have hypertension which is well-controlled, prediabetes which we will check with hemoglobin A1c. From a cardiovascular and pulmonary perspective she is an appropriate lower risk candidate for orthopedic surgery. I have also ordered labs including CBC, CMP, PT, PTT and hemoglobin A1c with management per results, although if reassuring she would then be deemed an appropriate surgical candidate. Breast cancer screening by mammogram 09/25/2024 Colon cancer screening 09/25/2024 Assessment & Plan (09/25/2024 12:28 PM EDT): Agreeable to [place], understanding if positive a colonoscopy would then be recommended as of today's visit 09/25/2024. Bilateral lower extremity edema 09/25/2024 Assessment & Plan (09/25/2024 12:34 PM EDT): Patient with standing pattern for many years, somewhat variable maxes months from time to year and with activity. Nonpitting pattern. Summer months are harder whether or increase standing tends to exacerbate. Will go away by the morning time. This pattern is generally normal variant with aging also with her increased weight pattern. Nonetheless we will check kidney function, liver function and she is notably had good blood pressure and EKG today 09/25/2024. Recommend compression stockings, elevation, making sure she flexes her muscles of the legs regularly when she is not active. Advise concerns. COVID 05/21/2024 Assessment & Plan (05/21/2024 2:55 PM EST): Patient testing positive for COVID in office today. In that regard we discussed symptom management, prescription for Bromfed being sent to pharmacy to help with cough and congestion. She may continue to utilize ibuprofen or Tylenol for headache or myalgias. We discussed new CDC guidelines that as long as she is 24 hours fever free without use of NSAIDs or Tylenol she can resume work schedule while continuing to wear a mask. Acute non-recurrent pansinusitis 05/21/2024 Assessment & Plan (05/21/2024 2:57 PM EST): Patient with about 6 weeks of prolonged nasal congestion, now with sinus pain and pressure. Will treat potential bacterial pathogen with azithromycin Z-Dandre. Course of prednisone should also help with sinus inflammation and promote drainage. Is also receiving decongestant through [facility] Allergic contact dermatitis due to other agents 03/05/2024 Assessment & Plan (03/05/2024 6:06 PM EDT): Pattern of rash on exposed surfaces of the arms especially forearms lesser so than the medial thighs and lower legs, felt to be most consistent with contact dermatitis likely related to some kind of the clothing material such as detergent. She does believe she is change detergent will make a change in that regard. Otherwise for treatment we will initiate prednisone 10 mg tablet 4 tablets daily x 5 days, triamcinolone 0.1% cream 2-3 times daily on nonfacial, not on genitourinary regions. Add Pepcid 20 mg twice daily and cetirizine 10 mg daily to use both together for the next week or 10 days, then as needed to benefit full antihistamine blockade. Advised if not improving. Chronic left shoulder pain 08/29/2023 Assessment & Plan (08/29/2023 10:02 AM EDT): As discussed in detail today 08/29/2023, seen in [facility] ER the day prior with notable negative x-ray of the left elbow and left shoulder, felt to be soft tissue injury most consistent with left rotator cuff arthropathy. Referred to [facility] clinic of which patient prefers to keep that location which is reasonable. For acute benefit I have added prednisone 10 mg tablet 3 tablets daily x 5 days. She has Robaxin muscle relaxants in the ER to use as needed. Recommend heating pad, light stretching. Avoidance of aggravating activities. Advise any worsening. Left lateral epicondylitis 08/29/2023 Assessment & Plan (08/29/2023 10:02 AM EDT): [place] to be secondary and comorbid with her left shoulder pain, treatment as per that conservative management. Advised if not improving. Epicondylitis elbow, medial, left 08/29/2023 Assessment & Plan (08/29/2023 10:02 AM EDT): [place] to be secondary and comorbid with her left shoulder pain, treatment as per that conservative management. Advised if not improving. Tendinitis, de Quervain's 01/27/2023 Assessment & Plan (03/30/2023 2:36 PM EST): Diagnosis 01/27/2023, felt related to some repetitive lifting, negative x-ray imaging January 2023 at [facility]. Good response to conservative management with initially naproxen, wrist brace, doing better now that she is has some flare of carpal tunnel syndrome as per that assessment plan. Advise recurrence. Assessment & Plan (02/28/2023 2:47 PM EDT): Diagnosis 01/27/2023, likely aggravated by some repetitive lifting although not a specific triggering event noted. Seen just before evaluation in January 2023 with negative x-ray at [facility]. Improved with use transient course of prednisone, followed by naproxen, use of wrist brace, and naproxen. Continue conservative management including avoidance repetitive use, wear wrist brace for any flare. Advise any worsening. Assessment & Plan (01/27/2023 9:01 AM EDT): New onset pattern of the last handful of days, likely aggravated by some repetitive lifting although not a specific triggering event noted. Gradually build up until she was seen a couple days ago in the ER with negative x-ray at [facility]. Improved with use of wrist brace, and naproxen. Positive Liberty's maneuver, very typical pattern of de Quervain's tendinitis. Initiate prednisone 10 mg tablet 3 tablets daily x5 days, followed by the previously prescribed naproxen from the ER for another 5 to 7 days. Icing, avoidance of repetitive use, wear wrist brace until this improves. Advised if not improving, we could consider physical therapy at that time. 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 Attempt to initiate Wegovy was denied by insurance, although could be reconsidered in the future if that were to change. As of 01/27/2023, 4 months of [...] could consider combining the phentermine with Topamax. 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 Attempt to initiate Wegovy was denied by insurance, although could be reconsidered in the future if that were to change. As of 01/27/2023, 4 months of [...] diet, exercise and weight loss. Advise concerns. Assessment & Plan (09/25/2024 12:28 PM EDT): Patient with some increased weight pattern as of early 2022, with power grader operator previously prescribing phentermine with some variable efficacy. Attempt to initiate Wegovy was denied by insurance, although could be reconsidered in the future if that were to change. As of 01/27/2023, 4 months of phentermine therapy that did result in weight loss, with somewhat more clinical response, having used in the past many times through gynecology. As of visit 04/02/2024, and 2 see if she might get more efficacy with an adjustment, we did a trial of phentermine at 15 mg tablet in the morning, Topamax 25 mg in the morning which is a combination which has shown some benefits further weight loss. She was lost to follow-up although does not feel like it made a significant benefit. Reinforced importance healthy diet, exercise and weight loss. 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 Attempt to initiate Wegovy was denied by insurance, although could be reconsidered in the future if that were to change. As of 01/27/2023, 4 months of phentermine therapy that did result in weight loss, with somewhat more clinical response, having used in the past many times through gynecology. To see if she may get more efficacy with an adjustment we will do a trial of phentermine at 15 mg tablet in the morning, Topamax 25 mg in the morning which is a combination which has shown some benefits further weight loss. Follow-up in 1 month's time to reassess with potential use of it for 3 to 4 months pending responsiveness. Reinforced importance healthy diet, exercise and weight loss, of which again she understands phentermine is not a long-term medication. 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 Attempt to initiate Wegovy was denied by insurance, although could be reconsidered in the future if that were to change. As of 01/27/2023, 4 months of phentermine therapy that did result in weight loss, reports that she has gained 17 pounds since her April 2023 visit with worsening diet and activity through the winter months. Too soon to reconsider phentermine therapy, although we could plan in the future if we did not see any improvement. Reinforced importance healthy diet, exercise and weight loss, of which again she understands phentermine is not a long-term medication. 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 Attempt to initiate Wegovy was denied by insurance, although could be reconsidered in the future if that were to change. As of 01/27/2023, 4 months of phentermine therapy that did result in weight loss, reports that she has gained 17 pounds since her April 2023 visit with worsening diet and activity through the winter months. Too soon to reconsider phentermine therapy, although we could plan in the future if we did not see any improvement. Reinforced importance healthy diet, exercise and weight loss, of which again she understands phentermine is not a long-term medication. 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 She does understand that phentermine even so is not designed as a long-term medicine. Attempt to initiate Wegovy was denied by insurance. As such I discussed at visit 01/27/2023 the other medication that would benefit weight loss is phentermine, and as such we initiated, now representing completion of the third month of treatment. More of a stagnant weight pattern which she still feels the medicine helps, such I will do a final and fourth months of prescription, though we will have her follow-up instead in 4 months or sooner if she needs. As such final and fourth month of with phentermine 37.5 mg at 1/2 tablet twice daily, 30-day supply, today on 04/29/2023. Jag nonconcerning. Additional importance of healthy diet and exercise to benefit weight loss. As this is final month, we will plan to follow-up in 4 months, sooner as needed. 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 She does understand that phentermine even so is not designed as a long-term medicine. Attempt to initiate Wegovy was denied by insurance. As such I discussed at visit 01/27/2023 the other medication that would benefit weight loss is phentermine, and as such we initiated, now representing completion of the second month of treatment. We could complete up to 3 or maybe 4 months treatment, as she continues to have modest weight loss, another 4 pound weight loss since her last visit, and a total of about 10 pound weight loss. She still feels it is benefit we will continue unchanged. As such I prescribed again phentermine initially 01/27/2023, refilled again for third prescription today 03/30/2023 with phentermine 37.5 mg at 1/2 tablet twice daily, 30-day supply. Reassess at 1 month follow-up visit. Jag nonconcerning. Additional importance of healthy diet and exercise to benefit weight loss. 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 She does understand that phentermine even so is not designed as a long-term medicine. Attempt to initiate Wegovy was denied by insurance. As such I discussed at visit 01/27/2023 that the only other medication that would benefit weight loss, would be the phentermine which she has seen benefit in the past but again I reinforced this is only for 3 to at most 4-month burst, and she needs to use this is a transition off the medicine to smaller portions and decreased dietary intake. She was agreeable. After 1 month she has had modest 5 pound weight loss but does feel like it is giving benefit would like to continue. As such I prescribed again phentermine initially 01/27/2023, refill today at 37.5 mg at 1/2 tablet twice daily, 30-day supply. Reassess at 1 month follow-up visit. Jag nonconcerning. Additional importance of healthy diet and exercise to benefit weight loss. Assessment & Plan (01/27/2023 9:00 AM EDT): Patient with some increased weight pattern now about 25 pounds over the last 6 months coinciding with her power grader operator no longer prescribing phentermine as she had variability in its of efficacy. She does understand that phentermine even so is not designed as a long-term medicine. Attempt to initiate Wegovy was denied by insurance. As such I discussed the only other medication that would benefit weight loss, would be the phentermine which she has seen benefit in the past but again I reinforced this is only for 3 to at most 4-month burst, and she needs to use this is a transition off the medicine to smaller portions and decreased dietary intake. She understands. Initiate phentermine 37.5 mg at 1/2 tablet twice daily, 30-day supply. Reassess at 1 month follow-up visit. Jag nonconcerning. Additional importance of healthy diet and exercise to benefit weight loss. Carpal tunnel syndrome, bilateral 05/13/2022 Assessment & Plan (09/25/2024 12:27 PM EDT): Classic presentation of bilateral carpal tunnel syndrome, with positive Phalen's and Tinel sign on exam. Waxing waning for many months as assessed 03/28/2023, with good response to conservative management eluding wrist braces at nighttime, with activities as needed. If any notable recurrence or worsening, consider referral to hand/orthopedic to consider injection and/or surgery. No new concerns as of 09/25/2024. Assessment & Plan (08/29/2023 10:01 AM EDT): Classic presentation of bilateral carpal tunnel syndrome, with positive Phalen's and Tinel sign on exam. Waxing waning for many months as assessed 03/28/2023, with good response to conservative management eluding wrist braces at nighttime, with activities as needed. Advise any notable recurrence. If any notable recurrence or worsening, consider referral to hand/orthopedic to consider injection and/or surgery. Assessment & Plan (03/30/2023 2:34 PM EST): Classic presentation of bilateral carpal tunnel syndrome, somewhat waxing waning on and off for many months. Positive Phalen's and Tinel sign on exam. Recommend use of wrist braces at nighttime and at work if able, and avoidance of aggravating activities. I did discuss if notable persistence or worsening, next evaluation would be referral to hand/orthopedic to consider injection and/or surgery. Assessment & Plan (08/16/2022 11:42 AM EDT): Classic presentation of right greater than left-sided carpal tunnel syndrome, with positive Phalen's and Tinel sign on exam, on 05/13/2022 evaluation. Improved with use of wrist braces at nighttime and avoidance of aggravating activities. I did discuss if notable persistence or worsening, next evaluation would be referral to hand/orthopedic to consider injection and/or surgery. Assessment & Plan (05/13/2022 11:44 AM EST): Classic presentation of right greater than left-sided carpal tunnel syndrome, with positive Phalen's and Tinel sign on exam. Onset initially of a numb burning tingly sensation in the first through third digits about 2 weeks ago which gradually had a sensation of shooting up towards the elbows and shoulder region. In the ER there is consideration of this being a cervical radiculopathy, but presentation is again consistent with this diagnosis. Initiate use of wrist braces at night and also consider during the daytime with work, as it appears her work where she uses her wrist and hands repetitively is the main trigger. I will initiate prednisone x5 days followed by naproxen for another couple weeks to help with anti-inflammatory benefit. I did discuss that this is not settling down with time, the neck step would be referral to hand/orthopedic to consider injection and/or surgery. Cervicalgia 05/13/2022 Assessment & Plan (05/13/2022 11:44 AM EST): Not initial pattern of discomfort in the neck, more occurring over the last days which I feel is more of a stress response that she is just having a generalized lower cervical paraspinal muscular tenderness but no signs of radiculopathy from the neck. Preservation of strength, and reflexes. The prednisone and naproxen should give benefit with addition of the recommendation for heating pad, light stretching. This should improve with treatment as well. Advise if not improving. Seasonal allergic rhinitis due to pollen 022 Assessment & Plan (09/25/2024 12:32 PM EDT): Seasonal pattern, with partial sponsor Zyrtec and Flonase, and with some breakthrough symptoms 02/28/2023 added montelukast 10 mg tablet daily, which has been beneficial.. Additional benefit of saline spray, nasal flushing. Modest meantime flares, recommend resuming her medicine. Advise any worsening. Assessment & Plan (03/05/2024 6:07 PM EDT): Seasonal pattern, with partial sponsor Zyrtec and Flonase, and with some breakthrough symptoms 02/28/2023 added montelukast 10 mg tablet daily, which has been beneficial.. Additional benefit of saline spray, nasal flushing. Advise concerns. With some modest flare at this time, recommend resumption of her allergy medicines for the next couple weeks, then as needed. Assessment & Plan (08/29/2023 10:11 AM EDT): Seasonal pattern, with partial sponsor Zyrtec and Flonase, and with some breakthrough symptoms 02/28/2023 added montelukast 10 mg tablet daily, which has been beneficial. Some refills provided 08/29/2023, use together for the next few weeks, and as needed. Additional benefit of saline spray, nasal flushing. Advise concerns. Assessment & Plan (02/28/2023 2:46 PM EDT): Seasonal pattern, with partial sponsor Zyrtec and Flonase but still some breakthrough symptoms. As such today 02/28/2023 we have added montelukast 10 mg tablet daily, use all 3 together for next couple weeks, then as needed. Additional benefit of saline spray, nasal flushing. Advise concerns. Assessment & Plan (01/06/2023 1:53 PM EDT): Patient seen benefit on medication regimen, refill provided for Zyrtec and Flonase to use for the next few weeks, and as needed. We could add Singulair in future for any breakthrough symptoms. Additional benefit of saline spray, nasal flushing. Advise concerns. Assessment & Plan (08/16/2022 11:46 AM EDT): Good response to as needed use of Zyrtec and Flonase, typically seasonal triggers in spring and fall. Additional benefit of saline spray, nasal flushing. Advised concerns. Assessment & Plan (03/23/2022 3:11 PM EST): Background allergy type symptoms last few weeks which are likely contributing to asthmatic trigger. As such I would like to initiate Zyrtec and Flonase as per prescriptions, use for the next few weeks, then as needed. Additional benefit of saline spray, nasal flushing. Advise if not improving. Viral syndrome 03/19/2022 Assessment & Plan (01/06/2023 1:53 PM EDT): COVID-19 testing negative, consistent with another viral syndrome with secondary asthmatic response. Treatment for asthma as per that assessment plan, otherwise symptomatic treatment with saline spray, nasal flushing, Tylenol/Advil as needed. Assessment & Plan (03/23/2022 3:10 PM EST): She is now 5 days into viral syndrome with strep screen negative, flu screen negative and COVID-19 testing -4 days ago when I assessed her previous. Progression of typical symptoms with more chest tightness and cough over the last few days. Please see details for asthmatic response further details, for viral syndrome, prednisone will give some benefit of sore throat, additional benefit of saline spray, cool-mist humidifier. She already has Robitussin-DM to use, recommend continued pattern. Expected course of stagnation of symptoms another day or 2 then gradual improvement. Advise if not improving. Assessment & Plan (03/19/2022 4:46 PM EST): Strep screen negative, flu screen negative, COVID-19 testing negative. Consistent with another viral illness. Symptomatic treatment with saline spray, cool-mist humidifier, Tylenol/Advil as needed. She is already using [id number] cough and cold medicine. Expected course of similar symptoms the next day or 2 then gradual improvement over the following week. Advised new onset fever or worsening. Sore throat (viral) 03/19/2022 Assessment & Plan (03/19/2022 4:45 PM EST): Strep screen negative, otherwise please refer to assessment plan for viral syndrome. Bilateral plantar fasciitis 02/09/2022 Overview (02/09/2022): initial diagnosis 06/17/2014 with aggravation and reevaluation 02/10/2016. Assessment & Plan (02/04/2025 1:06 PM EDT): Left greater than right sided historically with [...] been recommended for bilateral plantar fasciitis surgery, which was completed on 01/24/2025 and she is overall doing well with follow-up later this week. Assessment & Plan (12/12/2024 10:04 AM EDT): Left greater than right sided historically with [...] has been recommended for bilateral plantar fasciitis surgery. Preop evaluation today on 12/12/2024. Assessment & Plan (09/25/2024 12:27 PM EDT): Left greater than right sided historically with [...] ground of regularity to help symptomatically. Nonetheless with this persisting pattern patient would like to be evaluated further and I will refer to podiatry to assess in that regard. Advise concerns. Assessment & Plan (08/29/2023 10:00 AM EDT): Left greater than right sided. Evaluated initially 2013, with some associated muscular aches related to the pattern. Previously felt exacerbated by walking on hard concrete throughout the daytime, although she continues to do better ever since using better footwear with good arch support. Advise any notable recurrence Assessment & Plan (08/16/2022 11:41 AM EDT): Left greater than right sided. Evaluated initially 2013, with some associated muscular aches related to the pattern. Previously felt exacerbated by walking on hard concrete throughout the daytime, although she continues to do better ever since using better footwear with good arch support. Advise any notable recurrence Assessment & Plan (02/09/2022 9:13 AM EDT): Historically left greater than right sided. Evaluated initially 2013, with some associated muscular aches related to the pattern. This was felt to likely be exacerbated by walking on hard concrete throughout the daytime, although she's been better recently and using better footwear with better arch support. Advise recurrence. Essential (primary) hypertension 02/09/2022 Assessment & Plan (01/03/2025 11:59 AM EDT): Diagnosis 07/07/2021 initiation of losartan/HCTZ 50/12.5 daily. [...] sinus rhythm, unchanged compared to 09/25/2024, 08/29/2023, 08/16/2022 and 10/12/2021. Continue benefits of healthy diet, exercise, weight loss. Continue checking blood pressure at follow- up visits Assessment & Plan (12/12/2024 10:04 AM EDT): Diagnosis 07/07/2021 initiation of losartan/HCTZ 50/12.5 daily. [...] 50/12.5 mg dosing on 04/02/2024. Blood pressure has been in good range, and continues in good range today. She needs to monitor more regularly at home. Notable EKG obtained preoperatively on 12/12/2024 normal sinus rhythm, unchanged compared to 09/25/2024, 08/29/2023, 08/16/2022 and 10/12/2021. Continue benefits of healthy diet, exercise, weight loss. Reassess blood pressure at follow-up visit. Assessment & Plan (09/25/2024 12:29 PM EDT): Diagnosis 07/07/2021 initiation of losartan/HCTZ 50/12.5 daily. [...] 50/12.5 mg dosing on 04/02/2024. Blood pressure has been in good range. She needs to monitor more regularly at home. Notable EKG obtained 09/25/2024 and normal and unchanged compared to 08/29/2023, 08/16/2022 and 10/12/2021. Continue benefits of healthy diet, exercise, weight loss. Reassess blood pressure at follow-up visit. Assessment & Plan (04/02/2024 6:21 PM EST): Diagnosis 07/07/2021 initiation of losartan/HCTZ 50/12.5 daily. Weight sensitive blood pressure by history, previous with weight loss she was able to go off medicine but with weight gain again she is back on losartan/HCTZ as of summer 2022. She appears to have increasing blood pressure coinciding with her increasing weight. Currently on losartan/HCTZ 50/12.5 mg daily, increase to losartan/HCTZ 100/25 mg daily as of today's date 04/02/2024. She needs to monitor more regularly at home. Notable EKG obtained 08/29/2023 and normal and nonconcerning, unchanged compared to 08/16/2022 and 10/12/2021. Continue benefits of healthy diet, exercise, weight loss. Reassess blood pressure at follow-up visit. Assessment & Plan (12/29/2023 10:38 AM EDT): Diagnosis 07/07/2021 initiation of losartan/HCTZ 50/12.5 daily. Weight sensitive blood pressure by history, previous with weight loss she was able to go off medicine but with weight gain again she is back on losartan/HCTZ as of summer 2022. Continued satisfactory response to losartan/HCTZ 50/12.5 mg daily. Continues in good range in home environment in the low 120s over 70s, continue unchanged. She needs to monitor more regularly at home. Notable EKG obtained 08/29/2023 and normal and nonconcerning, unchanged compared to 08/16/2022 and 10/12/2021. Continue benefits of healthy diet, exercise, weight loss. Assessment & Plan (08/29/2023 9:39 AM EDT): Diagnosis 07/07/2021 initiation of losartan/HCTZ 50/12.5 daily. Weight sensitive, previous with weight loss she was able to go off medicine but with weight gain again she is back on losartan/HCTZ as of summer 2022. Good response to losartan/HCTZ 50/12.5 mg daily, notably elevated blood pressure in clinic today on 08/29/2023 but that is because she did not take her medicine this morning thinking she could not when she was fasting . Otherwise it is in good range and home environment in the low 120s over 70s, continue unchanged. She needs to monitor more regularly at home. Notable EKG obtained 08/29/2023 and normal and nonconcerning, unchanged compared to 08/16/2022 and 10/12/2021. Continue benefits of healthy diet, exercise, weight loss. Assessment & Plan (04/29/2023 10:25 AM EST): Diagnosis 07/07/2021 initiation of losartan/HCTZ 50/12.5 daily. Weight sensitive, previous with weight loss she was able to go off medicine but with weight gain again she is back on losartan/HCTZ as of summer 2022. Good response to losartan/HCTZ 50/12.5 mg daily, notably elevated blood pressure more around the 140/90 range since has been off the last couple weeks with difficulty getting refills. Refills provided today. She needs to monitor more regularly at home. Notable EKG obtained 08/16/2022 and normal nonconcerning, unchanged compared to 10/12/2021. Continue benefits of healthy diet, exercise, weight loss. Assessment & Plan (02/28/2023 2:42 PM EDT): Diagnosis 07/07/2021 initiation of losartan/HCTZ 50/12.5 daily. Weight sensitive, previous with weight loss she was able to go off medicine but with weight gain again she is back on losartan/HCTZ as of summer 2022. Good response to losartan/HCTZ 50/12.5 mg daily. She needs to monitor more regularly at home. Notable EKG obtained 08/16/2022 and normal nonconcerning, unchanged compared to 10/12/2021. Continue benefits of healthy diet, exercise, weight loss. Assessment & Plan (01/27/2023 8:59 AM EDT): Diagnosis 07/07/2021 initiation of losartan/HCTZ 50/12.5 daily. She had had some weight loss, she actually went off the medicine and her blood pressure had continued despite some initial modest weight gain, with continued weight gain her blood pressure is now elevated into the 130s to 140s systolic. Resume losartan/HCTZ 50/12.5 mg daily, plan to increase monitoring at home. Reassess at 1 month follow-up. Notable EKG obtained 08/16/2022 and normal nonconcerning, unchanged compared to 10/12/2021. Assessment & Plan (01/06/2023 1:52 PM EDT): Diagnosis 07/07/2021 initiation of losartan/HCTZ 50/12.5 daily. She had had some weight loss, she actually went off the medicine and her blood pressure continues in good range despite some weight gain over the last few months. As such no current need for losartan/HCTZ but I recommend continuing to monitor blood pressure regularly at home and advise elevations. Notable EKG obtained 08/16/2022 and normal nonconcerning, unchanged compared to 10/12/2021. Assessment & Plan (08/16/2022 11:43 AM EDT): Diagnosis 07/07/2021 initiation of losartan/HCTZ 50/12.5 daily. Continue good blood pressure in the 110s over 70s. With weight loss we might have to decrease the dose in the future, she understands. We will continue to follow-up. Continue monitoring blood pressure regularly. Notable EKG obtained 08/16/2022 and normal nonconcerning, unchanged compared to 10/12/2021. Assessment & Plan (03/19/2022 4:35 PM EST): Diagnosis 07/07/2021 initiation of losartan/HCTZ 50/12.5 daily. With ongoing weight loss her blood pressure has been decreasing but still is in the low 110s over 70s. I discussed that if she is to get any lower, more in the 100 systolic or 60s diastolic, I would then recommend to decrease this dose in half. We will continue to follow-up. Continue monitoring blood pressure regularly. Notable EKG obtained 10/12/2021 and nonconcerning. Assessment & Plan (02/09/2022 9:13 AM EDT): Diagnosis on 07/07/2021 after modest elevations in the 130s over 90s at home, initiation of losartan/HCTZ 50/12.5 mg daily. She is monitoring regularly, and blood pressures in the 110s over 70s most typically, with no chest pain, palpitations or short of breath. EKG obtained 10/12/2021 nonconcerning pattern. With her ongoing weight loss if her blood pressure drops further I would recommend decreasing to half a tablet daily. She will advised recommended healthy diet, exercise, benefits of ongoing weight loss. Low back pain 02/09/2022 Overview (02/09/2022): status post x-ray the lumbar spine showing no malalignment or fracture on 06/03/2011. Intrinsic asthma without sta tus asthmaticus without complication 02/09/2022 Assessment & Plan (12/12/2024 10:05 AM EDT): Known pattern of mild intermittent asthma, overall does well with infrequent as needed use of albuterol inhaler. The last such use of inhaler was in the wintertime, as such she is using very rarely and should not be a preoperative concern. Nonetheless if she would have onset of symptoms prior to surgery I would recommend delaying it. With this asthmatic tendency, while well-controlled, appropriate to be aware of this potential exacerbation. Assessment & Plan (09/25/2024 12:29 PM EDT): Known pattern of mild intermittent asthma, overall does well with infrequent as needed use of albuterol inhaler. Slight of allergies recently but she is doing well without need for rescue inhaler. A no new concerns as of 09/25/2024. Assessment & Plan (05/21/2024 2:56 PM EST): Patient has documented pattern of mild intermittent asthma. She is prescribed nightly Singulair which she is not currently been taking. As exacerbation of asthma with this viral syndrome with increased chest tightness and wheezing. Will treat with course of prednisone 40 mg daily for 7 days. I am also refilling her albuterol as she has been out. Patient also advised to restart montelukast, prescription sent to pharmacy Assessment & Plan (03/05/2024 6:06 PM EDT): Known pattern of mild intermittent asthma, overall does well with infrequent as needed use of albuterol inhaler. Slight of allergies recently but she is doing well without need for rescue inhaler. Advise any increased use. Assessment & Plan (12/29/2023 10:38 AM EDT): Known pattern of mild intermittent asthma, overall does well with infrequent as needed use of albuterol inhaler. Caution viral and allergy triggers. Advise any worsening or increased use of medication. No new concerns as of 12/29/2023. Assessment & Plan (08/29/2023 10:05 AM EDT): Known pattern of mild intermittent asthma, overall does well with infrequent as needed use of albuterol inhaler. Caution viral and allergy triggers. Advise any worsening or increased use of medication. Assessment & Plan (01/06/2023 1:54 PM EDT): Known pattern of mild intermittent asthma, but flaring recently with viral trigger. Prescription provided for albuterol to use 2 puffs every 4-6 hours next few days, then as needed. Prednisone 10 mg tablet 3 tablets daily x5 days. Advised if not improving. Assessment & Plan (08/16/2022 11:44 AM EDT): Mild intermittent pattern, typically triggers or viruses or allergies. Good response to as needed use of albuterol inhaler. Former smoker, cessation spring 2020 with benefit of asthmatic tendency. Advise any worsening. Assessment & Plan (03/23/2022 3:11 PM EST): Mild pattern overall but secondary to commendation of allergies and viral syndrome. Initiate prednisone, Ventolin HFA with spacer using 2 puffs every 4-6 hours over the next few days, then as needed. Additional benefit of saline spray, nasal flushing. Advise if not improving. Assessment & Plan (02/09/2022 9:15 AM EDT): Very modest pattern, typically triggered by viruses and allergies. No flare or need for rescue inhaler since about 2019. Advised recurrence. Personal history of tobacco use, presenting hazards to health 02/09/2022 Assessment & Plan (09/25/2024 12:30 PM EDT): Previously smoking at 1/4-1/2 pack per day, with cessation spring 2020. Understands risks of ongoing smoking including cardiovascular, cancer, pulmonary risks, benefits of ongoing cessation. Assessment & Plan (08/16/2022 11:44 AM EDT): Previously smoking at 1/4-1/2 pack per day, with cessation spring 2020. Understands risks of ongoing smoking including cardiovascular, cancer, pulmonary risks, benefits of ongoing cessation. Assessment & Plan (02/09/2022 9:16 AM EDT): Previously smoking at 1/4-1/2 pack per day, with cessation spring 2020. Understands risks of ongoing smoking including cardiovascular, cancer, pulmonary risks, benefits of ongoing cessation. Prediabetes 02/09/2022 Assessment & Plan (01/03/2025 12:01 PM EDT): Diagnosis with hemoglobin A1c 5.8% with 06/09/2021 [...] diabetes more quickly. Monitor hemoglobin A1c in 6 months. Assessment & Plan (12/12/2024 10:05 AM EDT): Diagnosis with hemoglobin A1c 5.8% with 06/09/2021 blood work. Hemoglobin A1c slightly increased to 5.9% on 09/25/2024, previous 5.7%, 5.7%, 5.6%, 5.5%, 5.4%, 5.6%. She continues to make efforts to eat healthy and be more active. Continue healthy diet, exercise, benefits of weight loss. Caution polyuria and polydipsia signs of progression to diabetes. Reinforced importance of ongoing weight loss over this would have concern of progressing to diabetes more quickly. Monitor hemoglobin A1c in 6 months. I will go ahead and recheck hemoglobin A1c with blood work preoperatively on 12/12/2024, to ensure not a surprising worsening. Management per results Assessment & Plan (09/25/2024 12:31 PM EDT): Diagnosis with hemoglobin A1c 5.8% with 06/09/2021 blood work. Hemoglobin A1c slightly increased to 5.9% today on 09/25/2024, previous 5.7%, 5.7%, 5.6%, 5.5%, 5.4%, 5.6%. She continues to make efforts to eat healthy and be more active. Continue healthy diet, exercise, benefits of weight loss. Caution polyuria and polydipsia signs of progression to diabetes. Reinforced importance of ongoing weight loss over this would have concern of progressing to diabetes more quickly. Monitor hemoglobin A1c in 6 months. Assessment & Plan (04/02/2024 6:21 PM EST): Diagnosis with hemoglobin A1c 5.8% with 06/09/2021 blood work. Hemoglobin A1c stable at 5.7%, previous 5.7%, 5.6% on 02/28/2023, previous 5.5%, 5.4%, 5.6%. She continues to make efforts to eat healthy and be more active. Continue healthy diet, exercise, benefits of weight loss. Caution polyuria and polydipsia signs of progression to diabetes. Reinforced importance of ongoing weight loss over this would have concern of progressing to diabetes more quickly. Assessment & Plan (12/29/2023 10:51 AM EDT): Diagnosis with hemoglobin A1c 5.8% with 06/09/2021 blood work. Hemoglobin A1c stable at 5.7%, previous 5.7%, 5.6% on 02/28/2023, previous 5.5%, 5.4%, 5.6%. She continues to make efforts to eat healthy and be more active. Continue healthy diet, exercise, benefits of weight loss. Caution polyuria and polydipsia signs of progression to diabetes. 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 Assessment & Plan (08/29/2023 10:09 AM EDT): Diagnosis with hemoglobin A1c 5.8% with 06/09/2021 blood work. Hemoglobin A1c modestly worsened to 5.7% compared to previous 5.6% on 02/28/2023, previous 5.5%, 5.4%, 5.6%. She continues to make efforts to eat healthy and be more active. Continue healthy diet, exercise, benefits of weight loss. With modest worsening follow-up in 4 months time to reassess, sooner as needed. Caution polyuria and polydipsia signs of progression to diabetes. Assessment & Plan (04/29/2023 10:27 AM EST): Diagnosis with hemoglobin A1c 5.8% with 06/09/2021 blood work. Hemoglobin A1c high improved when checked 02/28/2023 at 5.6%, slightly increased compared to previous at 5.5%, 5.4%, 5.6%. She continues to make efforts to eat healthy and be more active. Continue healthy diet, exercise, benefits of weight loss. Plan to recheck hemoglobin A1c when she follows up in 4 months time. Caution polyuria and polydipsia signs of progression to diabetes. Assessment & Plan (03/30/2023 2:35 PM EST): Diagnosis with hemoglobin A1c 5.8% with 06/09/2021 blood work. Hemoglobin A1c high normal and last checked 02/28/2023 at 5.6%, slightly increased compared to previous at 5.5%, 5.4%, 5.6%. She continues to make efforts to eat healthy and be more active. Continue healthy diet, exercise, benefits of weight loss. With improving control, monitor every 6 months Assessment & Plan (02/28/2023 2:45 PM EDT): Diagnosis with hemoglobin A1c 5.8% with 06/09/2021 blood work. Hemoglobin A1c slightly increased at 5.6% but still in good range, compared to previous 5.5%, 5.4%, 5.6%. Continue healthy diet, exercise, benefits of weight loss. With improving control, monitor every 6 months Assessment & Plan (08/16/2022 11:45 AM EDT): Initial diagnosis with hemoglobin A1c 5.8% with 06/09/2021 blood work. Hemoglobin A1c stable at 5.5%, previous 5.4%, 5.6%. Continue healthy diet, exercise, benefits of weight loss. With improving control, monitor every 6 months. Assessment & Plan (03/19/2022 4:45 PM EST): Initial diagnosis with hemoglobin A1c 5.8% with 06/09/2021 blood work. Hemoglobin A1c improved to 5.6% on 10/12/2021, today continues improved at 5.4% with dietary changes and weight loss. With improving control, monitor every 6 months. Recommend healthy diet, exercise and benefits of weight loss. Assessment & Plan (02/09/2022 9:13 AM EDT): Hemoglobin A1c 5.8% with 06/09/2021 blood work. Hemoglobin A1c improved to 5.6% on 10/12/2021. With ongoing weight loss, no need to recheck until her follow-up in 6 months. Recommend healthy diet, exercise and benefits of weight loss. Need for vaccination 02/09/2022 Restless legs syndrome 02/09/2022 Assessment & Plan (09/25/2024 12:31 PM EDT): Modest pattern, with previous initiation of Ropinirole at 1 mg at nighttime from March 2023. recently she feels is not as beneficial, and try different medicine. As such we will initiated on 12/29/2023 pramipexole 0.25 mg nightly which benefited, and increased to pramipexole 0.25 mg up to 0.5 mg nightly on 03/05/2024. She has seen good benefit and would like to continue unchanged. Continue good sleep hygiene. Reassess at follow-up. Assessment & Plan (03/05/2024 6:07 PM EDT): Modest pattern, with previous initiation of Ropinirole at 1 mg at nighttime from March 2023. recently she feels is not as beneficial, and try different medicine. As such we will initiated on 12/29/2023 pramipexole 0.25 mg nightly which benefited, and as such would be interested in titrating further. Increase pramipexole 0.25 mg up to 0.5 mg nightly on 03/05/2024. Continue good sleep hygiene. Reassess at follow-up. Assessment & Plan (12/29/2023 10:52 AM EDT): Modest pattern, with previous initiation of Ropinirole at 1 mg at nighttime from March 2023. recently she feels is not as beneficial, and she would be interested in trying a different medicine. As such we will initiate pramipexole 0.25 mg nightly which could be titrated up at future visits. Reassess at follow-up. Assessment & Plan (08/29/2023 10:09 AM EDT): Modest pattern but persisting despite initiation of iron previously but good response to initiation of ropinirole at 1 mg at nighttime from March 2023. This helped settle her symptoms and she is pleased at this time. Continue unchanged, advise concerns in the future. Assessment & Plan (04/29/2023 10:27 AM EST): Modest pattern but persisting despite initiation of iron at last visit. Previous attempted ropinirole 0.25 mg daily somewhat equivocally responsive, as such we initiated on 03/30/2023 ropinirole 1 mg at night, which she has had very good response. This helped settle her symptoms and she is pleased at this time. Continue unchanged, advise concerns in the future. Assessment & Plan (03/30/2023 2:36 PM EST): Modest pattern but persisting despite initiation of iron at last visit. Previous attempted ropinirole 0.25 mg daily somewhat equivocally responsive, as such we will initiate ropinirole 1 mg at night, to start half a tablet for the first 5 to 7 days, if tolerating transition up to the 1 mg dosing as this will likely give a further benefit. Advised if not improving, reassess at follow-up. Assessment & Plan (02/28/2023 2:46 PM EDT): Overall very mild pattern, diagnosis with typical symptoms as of February 2022. She never tried previously recommended iron therapy, such would like to do so now at every other day dosing, caution constipation. If not successful, we would consider again ropinirole 0.25 mg daily, she had tried in the past with somewhat equivocal responsiveness, but we could titrate further. Advise concerns. Assessment & Plan (08/16/2022 11:46 AM EDT): Overall very mild pattern, diagnosis with typical symptoms as of February 2022. She prefer to try iron replacement every other day which has not seen any significant benefit. As such we will initiate ropinirole 0.25 mg daily titrated to 0.5 mg dose, patient stated equivocally beneficial, no longer taking medicine. Advised desire to pursue again. Assessment & Plan (03/19/2022 4:39 PM EST): Overall very mild pattern, diagnosis with typical symptoms as of February 2022. She prefer to try iron replacement every other day which has not seen any significant benefit. As such we will initiate ropinirole 0.25 mg daily x15 days to titrate to 0.5 mg dose subsequent. This could be titrated further although I have cautioned side effect of sedation. Advise if not improving. Assessment & Plan (02/09/2022 9:16 AM EDT): Overall very mild pattern, diagnosis with typical symptoms as of February 2022 but only for a few months. At this time she would like to try iron replacement 3 times weekly to see if this gives benefit but if still persisting symptoms, we could initiate prescription medication. Mixed hyperlipidemia 02/09/2022 Assessment & Plan (01/03/2025 12:00 PM EDT): 09/25/2024 total cholesterol 188, triglycerides 116, HDL 46, LDL 121. Modestly worsened compared to 08/29/2023 total cholesterol 177, triglycerides 87, HDL 50, LDL 111, 08/16/2022 total cholesterol 166, triglycerides 91, HDL 48, LDL 101, 06/09/2021 with total cholesterol 171, triglycerides 92, HDL 44, LDL 109, 08/28/2016 with total cholesterol 166, triglycerides 45, HDL 56, LDL 101. Modest dyslipidemia, not requiring statin therapy at this time. Continue recommending healthy dietary intake, activity level and modest weight loss as discussed with obesity pattern. Monitor cholesterol at minimum yearly. Assessment & Plan (09/25/2024 12:30 PM EDT): 08/29/2023 total cholesterol 177, triglycerides 87, HDL 50, LDL 111. Comparison 08/16/2022 total cholesterol 166, triglycerides 91, HDL 48, LDL 101, 06/09/2021 with total cholesterol 171, triglycerides 92, HDL 44, LDL 109, 08/28/2016 with total cholesterol 166, triglycerides 45, HDL 56, LDL 101. Modest dyslipidemia, not requiring statin therapy at this time. Continue recommending healthy dietary intake, activity level and modest weight loss as discussed with obesity pattern. Recheck cholesterol pending with blood work 09/25/2024. Assessment & Plan (12/29/2023 10:39 AM EDT): 08/29/2023 total cholesterol 177, triglycerides 87, HDL 50, LDL 111. Comparison 08/16/2022 total cholesterol 166, triglycerides 91, HDL 48, LDL 101, 06/09/2021 with total cholesterol 171, triglycerides 92, HDL 44, LDL 109, 08/28/2016 with total cholesterol 166, triglycerides 45, HDL 56, LDL 101. Modest dyslipidemia, not requiring statin therapy at this time. Recheck yearly. Continue recommending healthy dietary intake, activity level and modest weight loss as discussed with obesity pattern. Assessment & Plan (08/29/2023 10:06 AM EDT): 08/16/2022 total cholesterol 166, triglycerides 91, HDL 48, LDL 101. Comparison 06/09/2021 with total cholesterol 171, triglycerides 92, HDL 44, LDL 109, 08/28/2016 with total cholesterol 166, triglycerides 45, HDL 56, LDL 101. Modest dyslipidemia, not requiring statin therapy at this time. Recheck pending with blood work 08/29/2023, management per results. Continue recommending healthy dietary intake, activity level and modest weight loss as discussed with obesity pattern. Assessment & Plan (08/16/2022 11:44 AM EDT): Cholesterol profile 06/09/2021 with total cholesterol 171, triglycerides 92, HDL 44, LDL 109. Comparison 08/28/2016 with total cholesterol 166, triglycerides 45, HDL 56, LDL 101. Modest dyslipidemia, not requiring statin therapy at this time. Recheck pending. Continue recommending healthy dietary intake, activity level and modest weight loss as discussed with obesity pattern. Monitor yearly. Assessment & Plan (02/09/2022 9:15 AM EDT): cholesterol profile 06/09/2021 with total cholesterol 171, triglycerides 92, HDL 44, LDL 109. Comparison 08/28/2016 with total cholesterol 166, triglycerides 45, HDL 56, LDL 101. Modest dyslipidemia, not requiring statin therapy at this time. Continue recommending healthy dietary intake, activity level and modest weight loss as discussed with obesity pattern. Monitor yearly. Genital herpes simplex type 2 02/09/2022 Assessment & Plan (08/29/2023 10:04 AM EDT): Diagnosis through Dr. Bosch, her power grader operator, who is placed her on suppressive therapy with Valtrex 500 mg daily. No recent recurrence. Advised concerns. Assessment & Plan (02/09/2022 9:16 AM EDT): Diagnosis through Dr. Bosch, her power grader operator, who is placed her on suppressive therapy with Valtrex 500 mg daily. No recent recurrence. Advised concerns. Routine general medical exam ination at a [facility] care facility 02/09/2022 Assessment & Plan (09/25/2024 12:32 PM EDT): Last screening blood work 08/29/2023 with additional negative HIV and hepatitis C virus screening on 08/16/2022. Recheck of blood work pending 09/25/2024 with managed per results. Pap smear always normal, last normal January [address] Bosch, power grader operator in [place]. She is due to recheck mammogram managed by Dr. Bosch, her power grader operator, last normal January 2023, past due for follow-up. Not had an order through [facility] at her preference today 09/25/2024. As she is now 44 patient agreeable to [facility] for colon cancer screening as of 09/25/2024, order placed. Tdap vaccine given 02/09/2022. Recommend flu and COVID vaccination. Assessment & Plan (08/29/2023 10:10 AM EDT): Last screening blood work 08/16/2022, notable for negative HIV and hepatitis C virus screening 03/27/2022 at [facility]. Recheck of blood work pending 08/29/2023 with managed per results. Pap smear always normal, last normal January [address] Bosch, power grader operator in [place]. Mammogram managed by Dr. Bosch, her power grader operator, last normal January 2022 verify but patient states she had fall 2022 that was also negative at [facility], I will request records to verify. Plan colon cancer screening at age 44 which is fall 2023. Tdap vaccine given 02/09/2022. Recommend flu and COVID vaccination. Assessment & Plan (08/16/2022 11:46 AM EDT): Last screening blood work 06/09/2021, completed in clinic again today 08/16/2022. Pap smear always normal, last normal February [address] Bosch, power grader operator in [place]. Mammogram managed by Dr. Bosch, her power grader operator, last normal January 2022. Flu vaccine and Tdap vaccine given 02/09/2022. Assessment & Plan (02/09/2022 9:17 AM EDT): Last screening blood work 06/09/2021, including fasting CBC, CMP, UA, lipid panel, TSH, hemoglobin A1c, vitamin D 25-hydroxy level. Pap smear always normal, last normal February [address] Bosch, power grader operator in [place]. Mammogram managed by Dr. Bosch, her power grader operator, last normal January 2022. Flu vaccine and Tdap vaccine given 02/09/2022. With stability, fall 6 months with complete physical, sooner as needed. Resolved Problems Problem Noted Date Diagnosed Date Resolved Date Blood pressure elevated with out history of HTN 05/13/2022 08/16/2022 Assessment & Plan (05/13/2022 11:14 AM EST): Blood pressure notably elevated at 140/93 when in the ER 05/05/2022, normalized today at 122/82 and previously she is generally in the 1 teens to 120 over 70s to 80s range. As such I feel this is more likely a stress response to when she was having pain pattern in the ER but I would like her to monitor her blood pressure multiple times weekly over the next few weeks and ensure this is in normal range at home. Advise elevations greater than the 130s systolic or mid 80s on a regular basis Class 2 obesity due to exces s calories without serious comorbidity with body mass index (BMI) of 39.0 to 39.9 in adult 02/09/2022 Assessment & Plan (01/06/2023 1:52 PM EDT): Patient with some increased weight pattern of about 20 pounds over the last 4 to 5 months coinciding with her power grader operator no longer prescribing phentermine as she had variability in its of efficacy. She does understand that phentermine even so is not designed as a long-term medicine. At this time she is interested in trying something else to benefit, and I discussed Wegovy as a potential treatment option, and she would like to pursue. Caution GI upset/cramping is most common side effect. Prescription provided. Additional importance of healthy diet and exercise to benefit weight loss. Assessment & Plan (08/16/2022 11:42 AM EDT): BMI in the mid 30s range, currently resuming phentermine through her power grader operator, Dr. Bosch with benefit. She has had historical difficulty maintaining healthy diet and exercise. I reinforced the long-term benefits, the benefit multiple of her health problems. Assessment & Plan (03/19/2022 4:36 PM EST): BMI ongoing slow but gradual improvement now in the mid 30s range, with use of phentermine through her power grader operator, Dr. Bosch with benefit. She has had historical difficulty maintaining healthy diet and exercise. I reinforced the long-term benefits, the benefit multiple of her health problems. Assessment & Plan (02/09/2022 9:14 AM EDT): BMI ongoing improvement now in the mid 30s range, with use of phentermine through her power grader operator, Dr. Bosch with benefit. She has had historical difficulty maintaining healthy diet and exercise. I reinforced the long-term benefits, the benefit multiple of her health problems. Other seasonal allergic rhinitis 02/09/2022 08/16/2022 Assessment & Plan (02/09/2022 9:15 AM EDT): Good response to seasonal use of Flonase, Claritin. We could add Singulair in future as necessary. Additional benefit of saline spray, nasal flushing. Advised concerns. Encounters Date Type Department Care Team Description 02/04/2025 11:45 AM EDT Office Visit [facility] [address] [place] [address] [place] [phone] Kike Aguirre MD Bilateral plantar fasciitis (Primary Dx); Class 3 severe obesity due to excess calories without serious comorbidity with body mass index (BMI) of 45.0 to 49.9 in adult; Prediabetes; Gastroesophageal reflux disease without esophagitis 02/04/2025 Travel 01/17/2025 Refill [facility] [address] [place] [address] [place] [phone] Kike Aguirre MD Restless legs syndrome 01/03/2025 11:30 AM EDT Office Visit [facility] [address] [place] [address] [place] [phone] Kike Aguirre MD Class 3 severe obesity due to excess calories without serious comorbidity with body mass index (BMI) of 45.0 to 49.9 in adult (Primary Dx); Essential (primary) hypertension; Mixed hyperlipidemia; Prediabetes; Gastroesophageal reflux disease without esophagitis 01/03/2025 Travel 12/13/2024 Results Follow-Up [facility] [address] [place] [address] [place] [phone] Kike Aguirre MD 12/12/2024 9:00 AM EDT Office Visit [facility] [address] [place] [address] [place] [phone] Kike Aguirre MD Preop cardiovascular exam (Primary Dx); Bilateral plantar fasciitis; Essential (primary) hypertension; Mild intermittent intrinsic asthma without status asthmaticus without complication; Prediabetes 12/12/2024 Travel from Last 3 Months Immunizations Immunization Administration Dates Next Due Flu Vaccine Split Quad 02/27/2019 Fluzone >6mos 04/02/2024 Fluzone (or Fluarix & Flulav al for VFC) >6mos 01/27/2023,02/23/2018,02/03/2017,2015 Fluzone Quad >6mos (Multi-dose) 02/09/2022 Hep A / Hep B 11/13/2018,06/08/2018,04/17/2018 Influenza Injectable Mdck Pf Quad 02/23/2018,,02/18/2016 Td (TDVAX) 07/31/2002 Tdap 02/09/2022,04/17/2018 Family History Medical History Relation Name Comments Hyperlipidemia Father Jamal carmen Diabetes Mother Kat carmen Relation Name Status Comments Father Jamal carmen Mother Kat carmen Social History Tobacco Use Types Packs/Day Years [...] on file Sexual Orientation Not on file Last Filed Vital Signs Vital Sign Reading Time Taken Comments Blood Pressure 124/80 02/04/2025 11:47 AM EDT Pulse 71 01/03/2025 11:37 AM EDT Temperature 37.1 C (98.7 F) 02/04/2025 11:47 AM EDT Respiratory Rate 20 01/03/2025 11:37 AM EDT Oxygen Saturation 98% 01/03/2025 11:37 AM EDT Inhaled Oxygen Concentration - - Weight 117 kg (257 lb) 02/04/2025 11:47 AM EDT Height 157.5 cm (5' 2 ) 02/04/2025 11:47 AM EDT Body Mass Index 47.01 02/04/2025 11:47 AM EDT Plan of Treatment Upcoming Encounters Date Type Department Care Team (Late st Contact Info) Description 03/05/2025 9:30 AM EDT Office Visit [facility] [address] [place] [address] [place] [phone] Kike Aguirre MD [address] [place] [address] [place] [phone] 03/28/2025 8:30 AM EST Office Visit [facility] [place] [phone] Kike Aguirre MD [facility] [place] [id number] Health Maintenance Due Date Last Done Comments Annual Gynecologic Pelvic an d Breast Exam 1980 Pneumococcal Vaccine 0-49 (1 of 2 - PCV) 1998 PAP SMEAR 02/07/2024 02/06/2021 COLON CANCER SCREENING 5 YEA R SIGMOIDOSCOPY 02/27/2024 COLONOSCOPY 02/27/2024 CT COLONOGRAPHY 02/27/2024 FECAL OCCULT BLOOD TEST 02/27/2024 FIT Testing (1 year) 02/27/2024 INFLUENZA VACCINE 12/07/2024 04/02/2024, , 02/09/2022, Additional history exists ANNUAL PHYSICAL 09/25/2025 09/25/2024 LIPID PANEL 09/25/2025 09/25/2024, 04/2 06/2023, 08/16/2022 MAMMOGRAM 10/09/2026 10/05/2024, 12/0 08/2022, 01/19/2022, Additional history exists COLOGUARD 10/02/2027 10/01/2024 COLORECTAL CANCER SCREENING 10/02/2027 TDAP/TD VACCINES (4 - Td or Tdap) 02/10/2032 02/09/2022, 04/17/2018, 07/31/2002 HEPATITIS C SCREENING Completed 03/27/2022 Procedures Procedure Name Priority Date/Time Associated Diagnosis Comments SCANNED - LABS 01/23/2025 SCANNED - LABS 01/22/2025 SCANNED - LABS 01/22/2025 SCANNED - LABS 01/22/2025 CBC AND DIFFERENTIAL Routine 12/12/2024 9:39 AM EDT Preop cardiovascular exam COMPREHENSIVE METABOLIC PANEL Routine 12/12/2024 9:39 AM EDT Preop cardiovascular exam Essential (primary) hypertension PROTIME-INR Routine 12/12/2024 9:39 AM EDT Preop cardiovascular exam APTT Routine 12/12/2024 9:39 AM EDT Preop cardiovascular exam HEMOGLOBIN A1C Routine 12/12/2024 9:39 AM EDT Preop cardiovascular exam Prediabetes ECG 12-LEAD Routine 12/12/2024 Preop cardiovascular exam SCANNED - MAMMO 10/05/2024 COL[facility]ARD Routine 10/01/2024 10:55 PM EDT Colon cancer screening LIPID PANEL Routine 09/25/2024 10:27 AM EDT Routine general medical examination at a health care facility from Last 3 Months or Most Recently Relevant to Health Maintenance Results * LABS SCANNED (01/23/2025) Only the most recent of4 resultswithin the time period is included. us Kike Aguirre MD LAB BLOOD ORDERABLES Final Resul t * aPTT (12/12/2024 9:39 AM EDT) aPTT 30 24 - 33 sec [facility] Comment: This test has not been validated for monitoring unfractionated heparin therapy. aPTT-based therapeutic ranges for unfractionated heparin therapy have not been established. For general guidelines on Heparin monitoring, refer to the [facility] of Services. Blood 12/12/2024 9:39 AM EDT 12/12/2024 Comment:Blood Release to [facility] (AMBULATORY) - 12/13/2024 8:08 AM EDT Performed at: [address] [place] [id number] Ammonia Box Tender: Jose Starks PhD, Phone: [phone] Kike Aguirre MD LAB BLOOD ORDERABLES Final Resul t [facility] (AMBULATORY) [address] [place] [address], [facility] [address] [place] [address], * Protime-INR (12/12/2024 9:39 AM EDT) INR 1.0 0.9 - 1.2 [facility] Comment: Reference interval is for non-anticoagulated patients. Suggested INR therapeutic range for Vitamin K antagonist therapy: Standard Dose (moderate intensity therapeutic range): 2.0 - 3.0 Higher intensity therapeutic range 2.5 - 3.5 Protime 10.5 9.1 - 12.0 sec [facility] Blood 12/12/2024 9:39 AM EDT 12/12/2024 Comment:Blood Release to [facility] (AMBULATORY) - 12/13/2024 8:08 AM EDT Performed at: 01 - [address] [id number] Ammonia Box Tender: Jose Starks PhD, Phone: [phone] us Kike Aguirre MD LAB BLOOD ORDERABLES Final Resul t [facility] (AMBULATORY) [address] [place] [address], [place] [phone] [facility] [address] [place] [address], [place] [phone] * (ABNORMAL) CBC & Differential (12/12/2024 9:39 AM EDT) WBC 10.5 3.4 - 10.8 x10E3/uL [facility] RBC 4.93 3.77 - 5.28 x10E6/uL [facility] Hemoglobin 13.7 11.1 - 15.9 g/dL [facility] Hematocrit 43.2 34.0 - 46.6 % [facility] MCV 88 79 - 97 fL [facility] MCH 27.8 26.6 - 33.0 pg [facility] MCHC 31.7 31.5 - 35.7 g/dL [facility] RDW 13.1 11.7 - 15.4 % [facility] Platelets 393 150 - 450 x10E3/uL [facility] Neutrophil Rel % 68 Not Estab. % [facility] Lymphocyte Rel % 22 Not Estab. % [facility] Monocyte Rel % 6 Not Estab. % [facility] Eosinophil Rel % 3 Not Estab. % [facility] Basophil Rel % 1 Not Estab. % [facility] Neutrophils Absolute 7.1(H) 1.4 - 7.0 x10E3/uL [facility] Lymphocytes Absolute 2.4 0.7 - 3.1 x10E3/uL [facility] Monocytes Absolute 0.7 0.1 - 0.9 x10E3/uL [facility] Eosinophils Absolute 0.3 0.0 - 0.4 x10E3/uL [facility] Basophils Absolute 0.1 0.0 - 0.2 x10E3/uL [facility] Immature Granulocyte Rel % 0 Not Estab. % [facility] Immature Grans Absolute 0.0 0.0 - 0.1 x10E3/uL [facility] Blood 12/12/2024 9:39 AM EDT 12/12/2024 Comment:Blood Release to [facility] (AMBULATORY) - 12/13/2024 8:08 AM EDT Performed at: 01 - [facility] [id number] Ammonia Box Tender: Jose Starks PhD, Phone: [phone] us Kike Aguirre MD LAB BLOOD ORDERABLES Final Resul t Performing Organization Address [facility] Co de Phone Number [facility] (AMBULATORY) [address] [place] [address], [facility] [address] [place] [id number], * (ABNORMAL) Hemoglobin A1c (12/12/2024 9:39 AM EDT) Hemoglobin A1C 5.9(H) 4.8 - 5.6 % [facility] Comment: Prediabetes: 5.7 - 6.4 Diabetes: >6.4 Glycemic control for adults with diabetes: <7.0 Blood 12/12/2024 9:39 AM EDT 12/12/2024 Comment:Blood Release to [facility] (AMBULATORY) - 12/13/2024 8:08 AM EDT Performed at: 01 - [address] [id number] Ammonia Box Tender: Jose Starks PhD, Phone: [phone] us Kike Aguirre MD LAB BLOOD ORDERABLES Final Resul t Performing Organization Address [facility] de Phone Number [facility] (AMBULATORY) [address] [place] [address], [facility] [address] [place] [address], [place] [phone] * (ABNORMAL) Comprehensive Metabolic Panel (12/12/2024 9:39 AM EDT) Glucose 101(H) 70 - 99 mg/dL [facility] BUN 11 6 - 24 mg/dL [facility] Creatinine 0.59 0.57 - 1.00 mg/dL [facility] EGFR Result 113 >59 mL/min/1.7 3 [facility] BUN/Creatinine Ratio 19 9 - 23 [facility] Sodium 142 134 - 144 mmol/L [facility] Potassium 3.9 3.5 - 5.2 mmol/L [facility] Chloride 108(H) 96 - 106 mmol/L [facility] Total CO2 21 20 - 29 mmol/L [facility] Calcium 8.9 8.7 - 10.2 mg/dL [facility] Total Protein 6.7 6.0 - 8.5 g/dL [facility] Albumin 3.8(L) 3.9 - 4.9 g/dL [facility] Globulin 2.9 1.5 - 4.5 g/dL [facility] Total Bilirubin 0.3 0.0 - 1.2 mg/dL [facility] Alkaline Phosphatase 125(H) 44 - 121 IU/L [facility] AST (SGOT) 16 0 - 40 IU/L [facility] ALT (SGPT) 8 0 - 32 IU/L [facility] Blood 12/12/2024 9:39 AM EDT 12/12/2024 Comment:[facility] - 12/13/2024 8:08 AM EDT Performed at: [address] [place] [id number] Ammonia Box Tender: Jose Starks PhD, Phone: [phone] us Kike Aguirre MD LAB BLOOD ORDERABLES Final Resul t [facility] [address] [place] [address], [facility] [address] [place] [address], * ECG 12-LEAD (12/12/2024) Narrative ECG - 12/12/2024 Kike Aguirre MD 12/12/2024 11:01 AM ECG 12 Lead Date/Time: 12/12/2024 10:07 AM Performed by: Kike Aguirre MD Authorized by: Kike Aguirre MD Comparison: compared with previous ECG from 09/25/2024 Similar to previous ECG Rhythm: sinus rhythm Rate: normal Conduction: conduction normal ST Segments: ST segments normal T Waves: T waves normal QRS axis: normal Other: no other findings Clinical impression: normal ECG Procedure Note Kike Aguirre MD - 12/12/2024 9:00 AM EDT Images from the original note were not included. Office Note Name: Aleyda Carmen : 1980 Chief Complaint Pre-op Exam Subjective History of Present Illness: Aleyda Carmen is a 44 y.o. female who presents today for preoperativevaluation for planned bilateral plantar fasciitis surgery by Dr. Grubbs,not yet scheduled, but once she has potential clearance will be done.This is related to evaluation 10/18/2024 with follow-up MRI imaging andultimately felt to be an appropriate surgical candidate due to lack ofimprovement with conservative management. Cardiovascular and pulmonaryevaluations today, she has good metabolic equivalents, asthma iswell-controlled without inhaler use for many months. She is prediabeticand we will check her hemoglobin A1c again today with blood work to ensurestability with previous 5.5%. Otherwise she has well-controlled medicalproblems. Review of Systems Objective Past Medical History: Diagnosis Date Acute pharyngitis, unspecified Acute tonsillitis, unspecified Bilateral plantar fasciitis initial diagnosis 06/17/2014 with aggravation and reevaluation 02/10/2016. Bronchitis MILD ASTHMATIC BRONCHITIS Essential (primary) hypertension Low back pain status post x-ray the lumbar spine showing no malalignment or fracture on06/03/2011. Mild intermittent asthma with (acute) exacerbation Morbid [...] Diabetes Mother Hyperlipidemia Father Vital Signs BP 122/80 (BP Location: Left arm, Patient Position: Sitting, Cuff Size:Adult) Pulse 87 Temp 97.8 F (36.6 C) (Temporal) Ht 157.5 cm(62 ) Wt 119 kg (262 lb) SpO2 97% BMI 47.92 kg/m Estimated body mass index is 47.92 kg/m as calculated from thefollowing: Height as of this encounter: 157.5 cm (62 ). Weight as of this encounter: 119 kg (262 lb). Physical Exam Constitutional: General: She is not in acute distress. Appearance: Normal appearance. She is obese. She is not ill-appearing,toxic-appearing or diaphoretic. HENT: Head: Normocephalic and atraumatic. Right Ear: Tympanic membrane, ear canal and external ear normal. Left Ear: Tympanic membrane, ear canal and external ear normal. Nose: No rhinorrhea. Mouth/Throat: Mouth: Mucous membranes are moist. Pharynx: Oropharynx is clear. No oropharyngeal exudate or posteriororopharyngeal erythema. Neck: Vascular: No carotid bruit. Cardiovascular: Rate and Rhythm: Normal rate and regular rhythm. Pulses: Normal pulses. Heart sounds: Normal heart sounds. No murmur heard. No friction rub. No gallop. Pulmonary: Effort: Pulmonary effort is normal. No respiratory distress. Breath sounds: Normal breath sounds. No stridor. No wheezing. Abdominal: General: Abdomen is flat. Bowel sounds are normal. There is nodistension. Palpations: Abdomen is soft. There is no mass. Tenderness: There is no abdominal tenderness. There is no guarding orrebound. Hernia: No hernia is present. Musculoskeletal: Cervical back: Neck supple. No tenderness. Right lower leg: No edema. Left lower leg: No edema. Lymphadenopathy: Cervical: No cervical adenopathy. Skin: General: Skin is warm and dry. Capillary Refill: Capillary refill takes less than 2 seconds. Neurological: General: No focal deficit present. Mental Status: She is alert and oriented to person, place, and time.Mental status is at baseline. Psychiatric: Mood and Affect: Mood normal. Behavior: Behavior normal. Thought Content: Thought content normal. POCT Results (if applicable): Results for orders placed or performed in visit on 09/25/24 Cologuard - Stool, Per Rectum Collection Time: 10/01/24 10:55 PM Specimen: Per Rectum; Stool Result Value Ref Range Colog[facility]ard Negative Negative ECG 12 Lead Date/Time: 12/12/2024 10:07 AM Performed by: Kike Aguirre MD Authorized by: Kike Aguirre MD Comparison: compared with previous ECG from09/25/2024 Similar to previous ECG Rhythm: sinus rhythm Rate: normal Conduction: conduction normal ST Segments: ST segments normal T Waves: T waves normal QRS axis: normal Other: no other findings Clinical impression: normal ECG Assessment and Plan Diagnoses and all orders for this visit: 1. Preop cardiovascular exam (Primary) Assessment & Plan: Here for preoperative evaluation on 12/12/2024 with planned bilateralplantar fasciitis surgery by Dr. Murray. Evaluated 10/18/2024 withfollow-up planned MRI, ultimately felt to be a candidate for surgery, withprogressing symptoms for many years. From a cardiovascular perspective,EKG is normal today 12/12/2024 and unchanged compared to previous and [facility] activity status evaluation is completely normal with a maximal scoreof 9.89 metabolic equivalents. Furthermore she does have mildintermittent asthma but very well-controlled without inhaler use for manymonths. As such an awareness of her asthmatic tendency is appropriate butshould not prevent any difficulties for surgery. From a medicalperspective she does have hypertension which is well-controlled,prediabetes which we will check with hemoglobin A1c. From acardiovascular and pulmonary perspective she is an appropriate lower riskcandidate for orthopedic surgery. I have also ordered labs including CBC,CMP, PT, PTT and hemoglobin A1c with management per results, although ifreassuring she would then be deemed an appropriate surgical candidate. Orders: - ECG 12 Lead - CBC & Differential; Future - Comprehensive Metabolic Panel; Future - Protime-INR; Future - aPTT; Future - Hemoglobin A1c; Future - Hemoglobin A1c - aPTT - Protime-INR - Comprehensive Metabolic Panel - CBC & Differential 2. Bilateral plantar fasciitis Assessment & Plan: Left greater than right sided historically with notable flare at the visittoday 09/25/2024. Evaluated initially 2013, with some associated muscularaches related to the pattern. Ongoing triggers including frequentgenerally poor footwear without good arch support, working on hardsurfaces, etc. I recommended benefits of getting new shoes with betterarch support or considering inserts, other preventative measures includingstretches and icing by rolling a frozen water bottle on the ground ofregularity to help symptomatically. Nonetheless as of 09/25/2024 notablepersisting or worsening pattern, as such he was referred to Dr. Murray,podiatry specialist where she was seen 10/18/2024 with recommendation forMRI and ultimately has been recommended for bilateral plantar fasciitissurgery. Preop evaluation today on 12/12/2024. 3. Essential (primary) hypertension Assessment & Plan: Diagnosis 07/07/2021 initiation of losartan/HCTZ 50/12.5 daily. Weightsensitive blood pressure by history, previous with weight loss she wasable to go off medicine but with weight gain again she is back onlosartan/HCTZ as of summer 2022. Start that she has had some weightsensitive component to her blood pressure. Currently on losartan/VJMS515/25 mg daily, which is increased from previous 50/12.5 mg dosing on04/02/2024. Blood pressure has been in good range, and continues in goodrange today. She needs to monitor more regularly at home. Notable EKGobtained preoperatively on 12/12/2024 normal sinus rhythm, unchangedcompared to 09/25/2024, 08/29/2023, 08/16/2022 and 10/12/2021. Continuebenefits of healthy diet, exercise, weight loss. Reassess blood pressureat follow-up visit. Orders: - Comprehensive Metabolic Panel; Future - Comprehensive Metabolic Panel 4. Mild intermittent intrinsic asthma without status asthmaticus withoutcomplication Assessment & Plan: Known pattern of mild intermittent asthma, overall does well withinfrequent as needed use of albuterol inhaler. The last such use ofinhaler was in the wintertime, as such she is using very rarely and shouldnot be a preoperative concern. Nonetheless if she would have onset ofsymptoms prior to surgery I would recommend delaying it. With thisasthmatic tendency, while well-controlled, appropriate to be aware of thispotential exacerbation. 5. Prediabetes Assessment & Plan: Diagnosis with hemoglobin A1c 5.8% with 06/09/2021 blood work. [id number] slightly increased to 5.9% on 09/25/2024, previous 5.7%, 5.7%, 5.6%,5.5%, 5.4%, 5.6%. She continues to make efforts to eat healthy and bemore active. Continue healthy diet, exercise, benefits of weight loss.Caution polyuria and polydipsia signs of progression to diabetes.Reinforced importance of ongoing weight loss over this would have concernof progressing to diabetes more quickly. Monitor hemoglobin A1c in 6months. I will go ahead and recheck hemoglobin A1c with blood work preoperativelyon 12/12/2024, to ensure not a surprising worsening. Management perresults Orders: - Hemoglobin A1c; Future - Hemoglobin A1c Vaccine Counseling: Follow Up No follow-ups on file. Kike Aguirre MD Kike Aguirre MD ECG ORDERABLES Final Result ECG * MAMMO Scan (10/05/2024) Anatomical Region Laterality Modality Other Kike Aguirre MD CHART REVIEW TABS Final Resul t * Cologuard - Stool, Per Rectum (10/01/2024 10:55 PM EDT) Cologuard Negative Negative 10/09/2024 4:52 AM EDT [email or web address] (CLIA #:[id number]) Comment: The Cologuard (TM) test was performed on this specimen. NEGATIVE TEST RESULT. A negative Cologuard result indicates a low likelihood that a colorectal cancer (CRC) or advanced adenoma (adenomatous polyps with more advanced pre-malignant features) is present. The chance that a person with a negative Cologuard test has a colorectal cancer is less than 1 in 1500 (negative predictive value >99.9%) or has an advanced adenoma is less than 5.3% (negative predictive value 94.7%). These data are based on a prospective cross-sectional study of 10,000 individuals at average risk for colorectal cancer who were screened with both Cologuard and colonoscopy. (Tigist Honeycutt al, N Engl J Med 2014;370(14):1286- 1297) The normal value (reference range) for this assay is negative. COLOGUARD RE-SCREENING RECOMMENDATION: Periodic colorectal cancer screening is an important part of preventive healthcare for asymptomatic individuals at average risk for colorectal cancer. Following a negative Cologuard result, the [place] Cancer Society and U.S. Multi-Society Task Force screening guidelines recommend a Cologuard re-screening interval of 3 years. References: [place] [employer] Guideline for Colorectal Cancer Screening: https://www.cancer.org/cancer/hbzit-yluipn-rtqohr/ijgxmpjiy-xjwzybouz-zfjckat/ac s-rec ommendations.html.; Kyrie DK, Mark CR, Swetha CooperK, Colorectal Cancer Screening: Recommendations for Physicians and Patients from the U.S. Multi-Society Task Force on Colorectal Cancer Screening , Am J Gastroenterology 2017; 112:8128-4460. TEST DESCRIPTION: Composite algorithmic analysis of stool DNA-biomarkers with hemoglobin immunoassay. Quantitative values of individual biomarkers are not reportable and are not associated with individual biomarker result reference ranges. Cologuard is intended for colorectal cancer screening of adults of either sex, 45 years or older, who are at average-risk for colorectal cancer (CRC). Cologuard has been approved for use by the U.S. FDA. The performance of Cologuard was established in a cross sectional study of average-risk adults aged 50-84. Cologuard performance in patients ages 45 to 49 years was estimated by sub-group analysis of near-age groups. Colonoscopies performed for a positive result may find as the most clinically significant lesion: colorectal cancer [4.0%], advanced adenoma (including sessile serrated polyps greater than or equal to 1cm diameter) [20%] or non- advanced adenoma [31%]; or no colorectal neoplasia [45%]. These estimates are derived from a prospective cross-sectional screening study of 10,000 individuals at average risk for colorectal cancer who were screened with both Cologuard and colonoscopy. (Tigist Honeycutt al, N Engl J Med 2014;370(14):7920-4725.) Cologuard may produce a false negative or false positive result (no colorectal cancer or precancerous polyp present at colonoscopy follow up). A negative Cologuard test result does not guarantee the absence of CRC or advanced adenoma (pre-cancer). The current Cologuard screening interval is every 3 years. ([place] Cancer Society and U.S. Multi-Society Task Force). Cologuard performance data in a 10,000 patient pivotal study using colonoscopy as the reference method can be accessed at the following location: www.[employer].com/results. Additional description of the Cologuard test process, warnings and precautions can be found at www.colEventRegistrd.com. Stool specimen (specimen) Specimen from rectum / Unknown 10/01/2024 10:55 PM EDT 10/04/2024 11:29 AM EDT us Kike Aguirre MD BODY FLUIDS AND STOOLS ORDERABLE S Final Result [email or web address] (CLIA #:[id number]) [address] [place] [address], * (ABNORMAL) Lipid Panel (09/25/2024 10:27 AM EDT) Total Cholesterol 188 100 - 199 mg/dL [facility] Triglycerides 116 0 - 149 mg/dL [facility] HDL Cholesterol 46 >39 mg/dL [facility] VLDL Cholesterol Ephraim 21 5 - 40 mg/dL [facility] LDL Chol Calc (NIH) 121(H) 0 - 99 mg/dL [facility] Blood Structure of left hand / Unknown 09/25/2024 10:27 AM EDT 09/25/2024 Comment:Blood Release to pat i Narrative [facility] - 09/26/2024 10:07 AM EDT Performed at: 01 - [facility] [address] [id number] Ammonia Box Tender: Jose Starks PhD, Phone: [phone] us Kike Aguirre MD LAB BLOOD ORDERABLES Final Resul t Performing Organization Address City/[facility]/ZIP Co de Phone Number [facility]) [address] [place] [address], [place] [phone] [facility] [address] [place] [address], [place] [phone] from Last 3 Months or Most Recently Relevant to Health Maintenance Insurance [facility] Care Teams Flow Specialist Relationship Specialty Start Date End Date Kike Aguirre MD [address] [place] [id number] PCP - General Internal Medicine 12/24/21
--- OUTSIDE RECORDS SUMMARY | 2025-02-12 14:48 | XMS_ITS | Encounter Summary ---
Author Organization [facility] Address [address] [place] [address] Care Team Providers Care Acid Pump Operator Name Role Phone Kike Aguirre MD Primary Care Provider [phone] Reason for Visit * Reason Comments Med Refill Encounter Details Date Type Department Care Team (Late Contact Info) Description 08/22/2023 Refill [facility] [address] [place] [address] [place] [phone] Kike Aguirre MD [address] [place] [address] [place] [address] Seasonal allergic rhinitis due to pollen Social History Tobacco Use Types Packs/Day Years Used Date Smoking Tobacco: Never Cigarettes Smokeless Tobacco: Never Alcohol Use Standard Drinks/Week Comments Never 0 (1 standard drink = 0.6 oz pur e alcohol) RARE PHQ-2 Answer Date Recorded Retired PHQ-9: Brief Depression Severity Measure Score 0 08/16/2022 PHQ-2 Answer Date Recorded Retired PHQ-9: Brief Depression Severity Measure Score 0 08/16/2022 Comments Unknown Sex and Gender Information Value Date Recorded Sex Assigned at Not on file Legal Sex Female 12:52 PM EDT Gender Identity Not on file Sexual Orientation Not on file documented as of this encounter Plan of Treatment Upcoming Encounters Date Type Department Care Team (Late st Contact Info) Description 03/05/2025 9:30 AM EDT Office Visit [facility] [address] [place] [address] [place] [phone] Kike Aguirre MD [address] [place] [address] [place] [address] 03/28/2025 8:30 AM EST Office Visit [facility] [address] [place] [address] Kike Aguirre MD [address] [place] [address] documented as of this encounter Visit Diagnoses Diagnosis Seasonal allergic rhinitis due to pollen documented in this encounter Additional Health Concerns Infection Onset Date Last Indicated Resolved Time COVID (rule out) 05/07/2024 05/07/2024 05/07/2024 4:09 PM EST COVID (confirmed) 05/21/2024 05/21/2024 08/19/2024 9:09 PM EDT documented as of this encounter Care Teams Acid Pump Operator Relationship Specialty Start Date End Date Kike Aguirre MD [address] [place] [address] PCP - General Internal Medicine 12/24/21 documented as of this encounter
--- OUTSIDE RECORDS SUMMARY | 2025-02-12 14:48 | XMS_ITS | Encounter Summary ---
Author Organization [facility] Address [address] [place] [address] Care Team Providers Care Employment Coordinator Name Role Phone Kike Aguirre MD Primary Care Provider [phone] Encounter Details Date Type Department Care Team (Latest Contact Info) Description 01/03/2025 Travel Social History Tobacco Use Types Packs/Day Years Used Date Smoking Tobacco: Former Cigarettes 0.5 39.8 S tarted: 1986 Passive Smoke Exposure: Never Smokeless Tobacco: Never [...] Description 03/05/2025 9:30 AM EDT Office Visit [facility] [place] [address] Kike Aguirre MD [address] [place] [address] [address] 03/28/2025 8:30 AM EST Office Visit [facility] [place] [address] Kike Aguirre MD [facility] [place] [address] documented as of this encounter Visit Diagnoses Not on filedocumented in this encounter Care Teams Employment Coordinator Relationship Specialty Start Date End Date Kike Aguirre MD [address] [place] [address] PCP - General Internal Medicine 12/24/21 documented as of this encounter
--- OUTSIDE RECORDS SUMMARY | 2025-02-12 14:48 | XMS_ITS | Encounter Summary ---
[facility] Address [address] [place] [address] Care Team Providers Care Wool Grader Name Role Phone Kike Aguirre MD Primary Care Provider [phone] Encounter Details Date Type Department Care Team (Late st Contact Info) Description 12/13/2024 Results Follow-Up [facility] [address] [place] [address] [place] [phone] Kike Aguirre MD [address] [place] [address] [place] [address] Social History Tobacco Use Types Packs/Day Years [...] Description 03/05/2025 9:30 AM EDT Office Visit [facility] [address] [place] [address] [place] [phone] Kike Aguirre MD [address] [place] [address] [place] [address] 03/28/2025 8:30 AM EST Office Visit [facility] [address] [place] [address] Kike Aguirre MD [address] [place] [address] documented as of this encounter Visit Diagnoses Not on filedocumented in this encounter Care Teams Wool Grader Relationship Specialty Start Date End Date Kike Aguirre MD [address] [place] [address] PCP - General Internal Medicine 12/24/21 documented as of this encounter
--- OUTSIDE RECORDS SUMMARY | 2025-02-12 14:48 | XMS_ITS | Clinical Summary ---
Author Organization [facility] Address [address] [place] [address] Phone [email or web address] Care Team Providers Care Sound Recordist Name Role Phone Unavailable Primary Care Provider Unavailabl e Allergies No known active allergies Medications methocarbamol (ROBAXIN) 500 MG tablet Take 500 mg by mouth every 8 (eight) hours if needed. 02/08/2021 Active naproxen (NAPROSYN) 500 MG tablet Take 500 mg by mouth every 12 (twelve) hours. 02/08/2021 Active Active Problems No known active problems Social History Tobacco Use Types Packs/Day Years Used Date Smoking Tobacco: Never Smokeless Tobacco: Never Intimate Partner Violence Answer Date R ecorded Insults You Not on file 01/23/2021 Threatens You Not on file 01/23/2021 Screams at You Not on file 01/23/2021 Physically Hurt Not on file 01/23/2021 Intimate Partner Violence Score Not on file 01/23/2021 Stress Answer Date Recorded Stress in your Life Not on file 03/14/2024 Dealing with Stress 3 03/14/2024 Comments Unknown Sex and Gender Information Value Date Recorded Sex Assigned at Not on file Legal Sex Female 5:12 PM CDT Gender Identity Not on file Sexual Orientation Not on file Last Filed Vital Signs Vital Sign Reading Time Taken Comments Blood Pressure - - Pulse 76 01/23/2021 12:43 PM EDT Temperature 36.9 C (98.4 F) 01/23/2021 12:43 PM EDT Respiratory Rate - - Oxygen Saturation 98% 01/23/2021 12:43 PM EDT Inhaled Oxygen Concentration - - Weight - - Height - - Body Mass Index - - Plan of Treatment Health Maintenance Due Date Last Done Comments CT Colonography 1979 Cervical Cancer Screening Combo 1979 Colonoscopy 1979 Colorectal Cancer Screening Combo 1979 DNA Cologuard 1979 Dental Cleaning/Exam 1979 FIT or FOBT Test 1979 HIV Screening 1979 HPV / Cotest 1979 Hepatitis C Screening 1979 Pap Testing 1979 Sigmoidoscopy 1979 HPV Immunization (1 - 2-dose series) 1990 Annual Preventive Exam 1997 Hep B Infection Screening - Triple Screen 1997 Hepatitis B Immunization (1 of 3 - 19+ 3-dose series) 1998 Tetanus Diphtheria and Pertu ssis Immunization (1 - Tdap) 1998 Breast Cancer Screening 2009 Covid-19 Immunization (1 - 2 25 season) 2025 Influenza Immunization (#1) 2025 HIB Immunization Aged Out No longer e ligible based on patient's age to complete this topic Hepatitis A Immunization Aged Out No longer eligible based on patient's age to complete this topic Pneumococcal Immunization Aged Out No longer eligible based on patient's age to complete this topic Polio Immunization Aged Out No longer eligible based on patient's age to complete this topic Insurance OPT OUT NO COPAY NB
--- OUTSIDE RECORDS SUMMARY | 2025-02-12 14:49 | XMS_ITS | Encounter Summary ---
[facility] Address [address] [place] [address] Care Team Providers Care Teamcenter Solution Architect Name Role Phone Kike Aguirre MD Primary Care Provider [phone] Reason for Visit * Reason Comments Med Refill Encounter Details Date Type Department Care Team (Late st Contact Info) Description 01/17/2025 Refill [facility] [address] [place] [address] [place] [phone] Kike Aguirre MD [address] [place] [address] [place] [address] Restless legs syndrome Social History Tobacco Use Types Packs/Day Years [...] 9:30 AM EDT Office Visit [facility] [address] [place] [address] [place] [phone] Kike Aguirre MD [address] [place] [address] [place] [address] 03/28/2025 8:30 AM EST Office Visit [facility] [address] [place] [phone] Kike Aguirre MD [address] [place] [address] documented as of this encounter Visit Diagnoses Diagnosis Restless legs syndrome Restless legs syndrome (RLS) documented in this encounter Care Teams Teamcenter Solution Architect Relationship Specialty Start Date End Date Kike Aguirre MD [address] [place] [address] PCP - General Internal Medicine 12/24/21 documented as of this encounter
--- OUTSIDE RECORDS SUMMARY | 2025-02-12 14:49 | XMS_ITS | Encounter Summary ---
[facility] Address [address] [place] [id number] Care Team Providers Care Licensed Home Inspector Name Role Phone Kike Aguirre MD Primary Care Provider [phone] Reason for Visit * Reason Comments Med Refill Encounter Details Date Type Department Care Team (Late Contact Info) Description 01/14/2023 Refill [facility] [address] [place] [address] [place] [phone] Kike Aguirre MD [address] [place] [address] [place] [address] Class 2 obesity due to excess calories without serious comorbidity with body mass index (BMI) of 39.0 to 39.9 in adult Social History Tobacco Use Types Packs/Day Years [...] Encounters Date Type Department Care Team (Late Contact Info) Description 03/05/2025 9:30 AM EDT Office Visit [facility] [address] [place] [address] [place] [phone] Kike Aguirre MD [address] [place] [address] [place] [address] 03/28/2025 8:30 AM EST Office Visit [facility] [address] [place] [phone] Kike Aguirre MD [address] [place] [address] documented as of this encounter Visit Diagnoses Diagnosis Class 2 obesity due to excess calories without serious comorbidity with body mass index (BMI) of 39.0 to 39.9 in adult documented in this encounter Additional Health Concerns Infection Onset Date Last Indicated Resolved Time COVID (rule out) 05/07/2024 05/07/2024 05/07/2024 4:09 PM EST COVID (confirmed) 05/21/2024 05/21/2024 08/19/2024 9:09 PM EDT documented as of this encounter Care Teams Licensed Home Inspector Relationship Specialty Start Date End Date Kike Aguirre MD [address] [place] [address] PCP - General Internal Medicine 12/24/21 documented as of this encounter
--- OUTSIDE RECORDS SUMMARY | 2025-02-12 14:49 | XMS_ITS | Clinical Summary ---
Author Organization Healthcare Address [address] [place] [address] Care Team Providers Care Honey Producer Name Role Phone Kike Aguirre MD Primary Care Provider [phone] Allergies No known active allergies Medications methocarbamol (Robaxin) 500 MG tablet Take 1 tablet (500 mg) by mouth 4 (four) times a day if needed for muscle spasms for up to 10 days. 40 tablet 4 Active lidocaine (Lidoderm) 5 % patch Apply 1 patch topically 1 (one) time each day over 12 hours. Remove & discard patch within 12 hours or as directed by MD. 5 patch 4 Active losartan-hydroC HLOROthiazide (Hyzaar) 50-12.5 MG tablet 3 Active Ventolin HFA 108 (90 Base) MCG/ACT inhaler 4 Active fluticasone (Flonase) 50 MCG/ACT nasal spray 4 Active cetirizine (ZyrTEC) 10 MG tablet 4 Active loratadine (Claritin) 10 MG tablet Take 1 tablet by mouth daily. Active Active Problems No known active problems Family History Medical History Relation Name Comments Diabetes Mother Krystina Relation Name Status Comments Mother Krystina Social History Tobacco Use Types Packs/Day Years Used Date Smoking Tobacco: Some Days Cigarettes 0.5 5 Smokeless Tobacco: Current Tobacco Cessation:Ready to Q uit: Not Asked; Counseling Given: Not Answered Alcohol Use Standard Drinks/Week Comments Not Currently 0 (1 standard drink = 0.6 oz pure alcohol) Alcoholic Drinks/day: Occasional alcohol use PHQ-2 Answer Date Recorded Patient Health Questionnaire-2 Score 0 10/10/2023 CAGE ASSESSMENT Answer Date Recorded Cage unable to access Not on file 03/27/2022 Maximum number of drinks you had on a given occasion in the last month? 0 drinks 03/27/2022 How many alcoholic Beverages do you typically drink in a week? 0 - 7 per week 03/27/2022 Have you ever felt you should CUT down on your d rinking? 0 03/27/2022 Have you been ANNOYED by peo ple criticizing your drinking? 0 03/27/2022 Have you felt GUILTY about your drinking? 0 03/27/2022 Have you had a drink first t ebonie in the morning (EYE-STOCK CHECKER) to steady your nerves or to get rid of a hangover? 0 03/27/2022 CAGE Questionnaire Score 0 022 Comments Unknown Sex and Gender Information Value Date Recorded Sex Assigned at Not on file Legal Sex Female 8:40 PM EDT Gender Identity Not on file Sexual Orientation Not on file Last Filed Vital Signs Vital Sign Reading Time Taken Comments Blood Pressure 166/88 08/16/2024 11:23 AM EDT Pulse 78 08/16/2024 11:23 AM EDT Temperature 36.3 C (97.4 F) 08/16/2024 11:23 AM EDT Respiratory Rate 16 08/16/2024 11:23 AM EDT Oxygen Saturation 99% 08/16/2024 11:23 AM EDT Inhaled Oxygen Concentration - - Weight 120 kg (265 lb) 08/16/2024 11:23 AM EDT Height 154.9 cm (5' 1 ) 08/16/2024 11:23 AM EDT Body Mass Index 50.07 08/16/2024 11:23 AM EDT Plan of Treatment Health Maintenance Due Date Last Done Comments [facility]-/Child/Adol SDOH Screenings 1979 [facility]- SDOH Screenings 1997 [facility]-Adult SDOH Screenings 1997 [facility]-Pneumococcal Vaccine: Pediatrics (0 to 5 Years) and At-Risk Patients (6 to 49 Years) (1 of 2 - PCV) 1998 [facility]-Pap Smear 02/27/2000 HPV Vaccines (1 - 3-dose SCDM series) 2006 [facility]-Cervical Cancer Screening 2009 [facility]-HPV/Cotest 2009 CT Colonography 02/27/2024 Colonoscopy 02/27/2024 FIT-DNA 02/27/2024 FIT 02/27/2024 FOBT 02/27/2024 Sigmoidoscopy 02/27/2024 [facility]-Colorectal Cancer Screening 02/27/2024 [facility]-Depression Screening 10/09/2024 10/10/2023 JMO-NTRRX-40 Vaccine ( - season) 2025 [facility]-Influenza Vaccine (#1) 01/07/202504/02, 01/27/2023, 02/27/2019, Additional history exists [facility]-Zoster Vaccines (1 of 2) 2029 [facility]-DTaP,Tdap,and Td Vaccines (3 - Td or Tdap) 02/10/2032 02/09/2022, 04/17/2018, 07/31/2002 [facility]-Hepatitis A Vaccines Aged Out 019, 06/08/2018, 04/17/2018 No longer eligible based on patient's age to complete this topic [facility]-Hepatitis B Vaccines Completed 019, 06/08/2018, 04/17/2018 [facility]-HIV Screening Completed 03/27/2022 [facility]-Hepatitis C Screening Completed 03/27/2022 [facility]-Obesity Intervention Completed 024, 10/10/2023, 09/06/2023 [facility]-HIB Vaccines Aged Out No longer e ligible based on patient's age to complete this topic [facility]-IPV Vaccines Aged Out No longer e ligible based on patient's age to complete this topic [facility]-Rotavirus Vaccines Aged Out No lo nger eligible based on patient's age to complete this topic Procedures Procedure Name Priority Date/Time Associated Diagnosis Comments HEPATITIS C ANTIBODY - ED W/REFLEX TO HCV QUANT PCR STAT 03/27/2022 9:51 PM EST HIV 1/2 ANTIBODY/ANTIGEN SCREEN WITH REFLEX TO HIV I/II DIFFERENTIATION STAT 03/27/2022 9:51 PM EST from Last 3 Months or Most Recently Relevant to Health Maintenance Results * HIV 1 & 2 Antibody/Antigen Screen (03/27/2022 9:51 PM EST) HIV 1 & 2 Antibody/Anti gen Screen Nonreactive Nonreactive 03/28/2022 1:35 AM EST [facility] Blood Venous blood specimen / Unknown Venipuncture / Unknown 03/27/2022 9:51 PM EST 03/27/2022 10:15 PM EST Bib Casey MD LAB BLOOD ORDERABLES Final Resul t [facility] [address] [place] [address] * Hepatitis C Antibody - ED (03/27/2022 9:51 PM EST) Pathologist [facility] Hepatitis C Antibody Negative Negative 03/28/2022 1:34 AM EST [facility] Blood Venous blood specimen / Unknown Venipuncture / Unknown 03/27/2022 9:51 PM EST 03/27/2022 10:15 PM EST Bib Casey MD LAB BLOOD ORDERABLES Final Resul t Performing Organization Address City/[facility] Co de Phone Number [facility] [address] [place] [address] from Last 3 Months or Most Recently Relevant to Health Maintenance Insurance [employer] [facility] MEDICAID Care Teams Honey Producer Relationship Specialty Start Date End Date Kike Aguirre MD [address] [place] [address] [place] [id number] [facility] - General 09/19/20
--- OUTSIDE RECORDS SUMMARY | 2025-02-12 14:49 | XMS_ITS | Encounter Summary ---
Author Organization Healthcare Address [address] [place] [address] Care Team Providers Care Board Liner Operator Name Role Phone Kike Aguirre MD Primary Care Provider [phone] Encounter Details Date Type Department Care Team (Late st Contact Info) Description 01/01/2019 [facility] [address] [place] [address] Dental, Provider, DDS [facility] [place] [address] Social History Tobacco Use Types Packs/Day Years Used Date Smoking Tobacco: Never Assessed Comments Unknown Sex and Gender Information Value Date Recorded Sex Assigned at Not on file Legal Sex Female 8:40 PM EDT Gender Identity Not on file Sexual Orientation Not on file documented as of this encounter Plan of Treatment Not on file documented as of this encounter Visit Diagnoses Not on filedocumented in this encounter Additional Health Concerns Infection Onset Date Last Indicated Resolved Time COVID-19 Rule-Out 09/16/2023 09/16/2023 09/16/2023 10:15 PM EDT documented as of this encounter Care Teams Board Liner Operator Relationship Specialty Start Date End Date Kike Aguirre MD [address] [place] [id number] PCP - General 09/19/20 documented as of this encounter
--- OUTSIDE RECORDS SUMMARY | 2025-02-12 14:49 | XMS_ITS | Encounter Summary ---
[facility] Address [address] [place] [id number] Care Team Providers Care Clipper Automatic Name Role Phone Kike Aguirre MD Primary Care Provider [phone] Reason for Visit * Reason Comments Med Refill Encounter Details Date Type Department Care Team (Late Contact Info) Description 01/14/2023 Refill [facility] [address] [place] [address] [place] [phone] Kike Aguirre MD [address] [place] [address] [place] [id number] Class 2 obesity due [...] Description 03/05/2025 9:30 AM EDT Office Visit [facility] [address] [place] [address] [place] [phone] Kike Aguirre MD [address] [place] [address] [place] [id number] 03/28/2025 8:30 AM EST Office Visit [facility] [address] [place] [id number] Kike Aguirre MD [address] [place] [address] documented as of this encounter Visit Diagnoses [...] documented as of this encounter Care Teams Clipper Automatic Relationship Specialty Start Date End Date Kike Aguirre MD [address] [place] [address] PCP - General Internal Medicine 12/24/21 documented as of this encounter
--- OUTSIDE RECORDS SUMMARY | 2025-02-12 14:49 | XMS_ITS | Encounter Summary ---
[facility] [address] [place] [address] Care Team Providers Care Security Shift Supervisor Name Role Phone Kike Aguirre MD Primary Care Provider [phone] Encounter Details Date Type Department Care Team (Latest Contact Info) Description 02/04/2025 Travel Social History Tobacco Use Types Packs/Day [...] 03/05/2025 9:30 AM EDT Office [facility] [place] [place] [phone] Kike Aguirre MD [address] [place] [address] 03/28/2025 8:30 AM EST Office [facility] [place] [place] [phone] Kike Aguirre MD [facility] [place] [address] documented as of this encounter Visit Diagnoses Not on filedocumented in this encounter Care Teams Security Shift Supervisor Relationship Specialty Start Date End Date Kike Aguirre MD [address] [place] [address] PCP - General Internal Medicine 12/24/21 documented as of this encounter
[2025-02-12 17:13] LABS: Hepatitis C Ab Qual. W/ RFX NEGATIVE (Negative)
[2025-02-13 07:11] LABS: Hepatitis B Surface Antigen Negative (Negative)
== END 2025-02-12 23:59 | disposition home or self-care (01) ==
LOC: LAB 14:42
PROVIDERS: PCP Pediatrics; Visit Provider Nurse Practitioner Obstetrics & Gynecology
DX: Z01.419 Encounter for gynecological examination (general) (routine) without abnormal findings (principal); Z72.51 High risk heterosexual behavior
CPT/HCPCS: 36415; 86803; 87340; 87389